=== PATIENT | male | born 1975 | race Caucasian/White ===

== ENCOUNTER 2024-01-14 08:45 | Outpatient (REF) | payer SELFPAY ==
--- NOTE | ~2024-01-14 | XR_ITS ---
EXAMINATION: XR CHEST CLINICAL INFORMATION: Productive cough. COMPARISON: None available. TECHNIQUE: 2 views of the chest were obtained. FINDINGS: Left chest wall AICD with its lead in the right heart. No lead fracture. No airspace consolidation. No pleural effusion or pneumothorax. Unremarkable cardiomediastinal silhouette. XR/XR chest 2V IMPRESSION: 1. No acute cardiopulmonary findings. 2. Left chest wall AICD with its lead in the right heart. Electronically signed by: Joe Machuca MD 01/14/2024 10:44 AM EDT
[2024-01-14 11:31] LABS: MANUAL DIFF FLAG NO
[2024-01-14 11:42] LABS: Basophils Absolute Auto 0.1 X10*3/uL (0.0-0.2); Basophils Percent Auto 1.4 % (0-2); Eosinophils Absolute Auto 0.3 X10*3/uL (0.0-0.4); Eosinophils Percent Auto 5.1 % (0-4); Hematocrit 43.9 % (42.0-52.0); Hemoglobin 14.6 g/dl (14.0-18.0); Imm Gran Abs Auto 0.01 X10*3/uL (0.00-0.03); Imm Gran Pct Auto 0.2 % (0.0-0.4); Lymphocytes Absolute Auto 2.5 X10*3/uL (1.2-4.9); Lymphocytes Percent Auto 37.2 % (20-40); Mean Corpuscular HGB Conc 33.3 g/dl (31.0-36.0); Mean Corpuscular Hemoglobin 31.6 pg (27.0-33.0); Mean Platelet Volume 10.2 fL (9.4-12.4); Monocytes Absolute Auto 0.7 X10*3/uL (0.1-1.2); Monocytes Percent Auto 10.1 % (2-11); Neutrophils Absolute Auto 3.1 x10*3/uL (2.0-8.3); Platelet Count 265 X10*3/uL (160-400); Red Blood Count 4.62 X10*6/uL (4.60-5.80); Red Cell Distribution Width 13.1 % (11.0-16.0); White Blood Count 6.6 X10*3/uL (4.8-10.8)
[2024-01-14 12:05] LABS: Alanine Aminotransferase 60 U/L (0-40); Albumin Level 4.4 g/dL (3.5-5.0); Alkaline Phosphatase 53 U/L (39-117); Anion Gap 13 (12-20); Aspartate Amino Transferase 49 U/L (5-37); Bilirubin Total 0.9 mg/dL (0.0-1.0); Blood Urea Nitrogen 12 mg/dL (9-16); Calcium 9.8 mg/dL (8.4-10.2); Carbon Dioxide 27 mmol/L (22-29); Chloride 104 mmol/L (96-108); Estimated Glomerular Filt Rate > 60; Glucose Random 103 mg/dL (60-115); Potassium 4.7 mmol/L (3.3-5.1); Sodium 139 mmol/L (135-145); Total Protein 7.7 g/dL (6.5-8.0)
[2024-01-14 12:10] LABS: Digoxin 0.6 ng/mL (0.8-2.0); TSH reflex Free T4 0.81 uIU/mL (0.32-4.0)
[2024-01-14 12:24] LABS: Vitamin B12 343 pg/mL (200-900)
== END 2024-01-14 08:46 | disposition home or self-care (01) ==
LOC: HO.HHCL 08:45
PROVIDERS: Visit Provider Emergency Medicine
DX: I50.9 Heart failure, unspecified (principal); I42.9 Cardiomyopathy, unspecified; R68.89 Other general symptoms and signs; Z95.810 Presence of automatic (implantable) cardiac defibrillator
CPT/HCPCS: 36415; 71046; 80053; 80162; 82607; 84443; 85025

== ENCOUNTER 2024-01-15 08:43 | Outpatient (REF) | payer MEDICAID, SELFPAY ==
[2024-01-15 11:43] LABS: Cholesterol 192 mg/dL (<200); HDL Cholesterol 47 mg/dL (>40); LDL Cholesterol Calculated 114 mg/dL (<100); Triglycerides 155 mg/dL (<150)
[2024-01-15 12:06] LABS: HBS Num1 61.89 mIU/mL (0-7.99); HBc Num1 0.14 S/CO (0.00-0.79); HBsAGNum1 0.36 S/CO (0.00-0.99); Hepatitis B Core Antibody Nonreactive (Nonreactive); Hepatitis B Surface Antigen Negative (Negative); ~HepC Num1 0.22 S/CO (0.00-0.79); ~Hepatitis B Surface Antibody REACTIVE (Nonreactive); ~Hepatitis C Antibody Nonreactive (Nonreactive)
[2024-01-15 12:07] LABS: Hepatitis A Antibody IgG Nonreactive (Nonreactive); ~Hepatitis A Antibody IgG 0.47 S/CO (0.00-0.99)
== END 2024-01-15 08:44 | disposition home or self-care (01) ==
LOC: HO.HHCL 08:43
PROVIDERS: Visit Provider Emergency Medicine
DX: I50.9 Heart failure, unspecified (principal)
CPT/HCPCS: 36415; 80061; 86704; 86706; 86708; 86803; 87340

== ENCOUNTER 2024-03-16 08:54 | Outpatient (AMB) | payer MEDICAID, SELFPAY ==
--- NOTE | 2024-03-16 09:03 | A.OFFVIS_ITS ---
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 Patient reports this has been on going for a couple years. Patient mentions that his fingers stay constantly locked. 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 Reports difficulty with lifting, gripping, grasping, and squeezing for both hands. Patient reports that his left hand is worse than the right. States they a re experiencing locking and cramping of the right small finger and left hand is all the digits. No hx of hand surgeries or treatment. 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 The patient states that these contractures have been ongoing for approximately 10 years. Patient states that he 1st noticed a contracture in his right small finger, but this has progressed to involve all fingers of bilateral hands. The patient states that he has tremendous difficulty with gripping or grasping things due to these contractures. Patient denies any numbness or tingling in bilateral hands. No other acute complaints or concerns at this time. [facility] Social History (Updated 03/16/24 @ 09:13 by Kita Whiteside) Alcohol intake: current Alcohol intake frequency: holidays/special occasions only Patient Tobacco Use Status: Never used Tobacco Current occupational status: unemployed Current occupation: left hand dominant Review of Systems Const All systems reviewed & are unremarkable except as noted in HPI and below Physical Exam Extrem Other: Patient is alert, oriented, and in no acute distress. Neuro: Normal sensation of the tips of all digits of the bilateral hand at this time Vascular: Cap refill brisk Pain: Patient reports no tenderness to palpation about the bilateral hands or wrists ROM: Contractures with Dupuytren's cords noted of all digits of the left hand and all but the index finger of the right hand Contracture of 90 degrees of both the MCP and PIP joints of the right small finger noted Contractures of the proximally 30 degrees of the MCP joints of the right middle and ring fingers noted, as well as approximately 45 degrees of the PIP joints of the fingers There is also noted to be an approximately 45 degree contracture of the IP joint of the right thumb There is noted to be an approximately 75-80 degree contracture of the MCP joints of the left small and ring fingers, with approximately 30 degree contractures of the PIP joints of these fingers There is noted to be approximately 30 degree contracture of the MCP joints index and middle fingers of the left hand There is noted to be a 15-20 degree contracture of the IP joint of the left thumb Skin: No lacerations or abrasions. General: No ecchymosis, erythema, or evidence of infection. Psych: Appears grossly normal Affect normal Attitude cooperative Assessment & Plan Assessment & Plan (1) Dupuytren's contracture of both hands: Code(s): M72.0 - Palmar fascial fibromatosis [Dupuytren] Category: Medical Plan 1. Dupuytren's contractures of bilateral hands Involving all digits of the left hand and all of the index finger of the right hand Ongoing for approximately 10 years At this time, patient was referred to Dr. Bean for surgical consult for Dupuytren's contracture with bilateral hands, as Dr. 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 Bean Patient will follow-up for next available appointment for surgical consult for bilateral Dupuytren's contractures with Dr. Bean Coding Level of Care Code New Pt Level 3 (19595) Diagnoses Dupuytren's contracture of both hands M72.0
== END 2024-03-16 09:26 | disposition home or self-care (01) ==
PROVIDERS: PCP Emergency Medicine
DX: M72.0 Palmar fascial fibromatosis [Dupuytren] (principal)
CPT/HCPCS: 99203

== ENCOUNTER → 2024-03-16 08:54 | Outpatient (BNVA) | payer MEDICAID, SELFPAY | PROVIDERS: PCP Emergency Medicine | DX: M72.0 Palmar fascial fibromatosis [Dupuytren] (principal) | CPT/HCPCS: 99212 ==

== ENCOUNTER 2024-03-25 08:09 | Outpatient (REF) | payer MEDICAID, SELFPAY ==
[2024-03-25 12:10] LABS: Alanine Aminotransferase 26 U/L (0-40); Albumin Level 4.2 g/dL (3.5-5.0); Alkaline Phosphatase 38 U/L (39-117); Anion Gap 10 (12-20); Aspartate Amino Transferase 25 U/L (5-37); Bilirubin Direct 0.2 mg/dL (0.0-0.5); Bilirubin Total 0.6 mg/dL (0.0-1.0); Blood Urea Nitrogen 18 mg/dL (9-16); Carbon Dioxide 29 mmol/L (22-29); Chloride 104 mmol/L (96-108); Estimated Glomerular Filt Rate > 60; Glucose Random 101 mg/dL (60-115); Potassium 4.3 mmol/L (3.3-5.1); Sodium 139 mmol/L (135-145); Total Protein 7.2 g/dL (6.5-8.0)
== END 2024-03-25 08:10 | disposition home or self-care (01) ==
LOC: HO.HHCL 08:09
PROVIDERS: Visit Provider Nurse Practitioner Family
DX: I50.9 Heart failure, unspecified (principal)
CPT/HCPCS: 36415; 80048; 80076

== ENCOUNTER 2024-04-13 09:57 | Outpatient (AMB) | payer MEDICAID, SELFPAY ==
--- NOTE | 2024-04-13 10:03 | A.OFFVIS_ITS ---
Vital Signs 04/13/24 10:15 Height 6 ft Weight 188 lb BMI 25.5 Intake Visit Reasons: OV-B/L Dupuytren-30 min appt. Intake Note: Patient 48-year-old left hand dominant male who presents for a follow up visit for his contractures of bilateral hands. The patient states that these contractures have been ongoing for approximately 10 years. Patient states that he 1st noticed a contracture in his right small finger, but this has progressed to involve all fingers of bilateral hands. States his left is worse. Denies pain just discomfort. Seen with Reinaldo Caban who wants patient to be re-evaluated with Dr Bean to discuss surgical intervention. Allergies No Known Allergies Allergy (Verified 04/13/24 10:15) HPI HPI OV-B/L Dupuytren-30 min appt.: Details: Chandler is a 49 year old left hand dominant man who presents for bilateral Dupuytrens contractures. He complains of contractures to all his fingers bilaterally. He says this began when he was 39 and has been worsening since. He finds himself limited in the use of his hands, with poor function and weakness with activities. He denies any prior treatment options He has a Hx of CHF, with an implanted Defibrillator, and is on multiple medications for this, including Digoxin, Jardiance, Exntresto, and is scheduled to meet with [facility] to establish care on 05/26/24. 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 [facility] Social History (Updated 03/16/24 @ 09:13 by Kita Whiteside) Alcohol intake: current Alcohol intake frequency: holidays/special occasions only Patient Tobacco Use Status: Never used Tobacco Current occupational status: unemployed Current occupation: left hand dominant Review of Systems Const All systems reviewed & are unremarkable except as noted in HPI and below Physical Exam Vital Signs: BMI result Body Mass Index 25.5 Const General: cooperative, healthy appearing and no acute distress Orientation/consciousness: patient oriented x3 HEENT Head: Yes normocephalic and Yes atraumatic Eyes EOM: EOMs intact bilaterally Resp Effort & Inspection: normal respiratory effort and able to speak in complete sentences Cardio Jugular venous distension: no JVD Skin General skin exam: turgor normal Rashes: no rashes Neuro General: patient oriented x3 Extrem Other: Evaluation of Bilateral Upper Extremity: The patient is alert, oriented, and in no acute distress Neuro: Median, Ulnar, Radial nerves motor and sensory intact and sensation is normal to the tips of all digits Vascular: Cap refill brisk ROM: He has Dupuytrens contractures of all digits bilaterally He can make a fist with all digits of his bilateral hands, without active flexion of the small finger DIP joints Left hand: Thumb: central cord extending from palm to radial aspect of the thumb, good active flexion & extension of the IP joint. Transverse cord up the 1st webspace, can ABduct his thumb 2cm from index finger Index: large central cord extending from the mid-palm up the ulnar aspect of finger just past the PIP joint Middle: central cords from the index & ring fingers are extending to contract the middle finger MCP joint Ring: large central cord extending from the mid-palm Small: DIP hyperextension to 45 degrees, central cord extending from the mid- palm Digit MCP PIP DIP 1st Web Thumb 80 20 2cm ABduction Index 85 30 0 Middle 80 40 0 Ring 90 30 0 Small 95 45 45 hyperextension Right hand: Thumb: central cord extending from palm to radial aspect of the thumb, cord passing across 1st webspace, ABduction of 4-5cm from index finger Index: Middle: Ring: cord volar to PIP joint, MCP joint likely due to small finger Small: DIP hyperextension to 10 degrees Digit MCP PIP DIP 1st Web Thumb 80 5 4-5cm ABduction Index 0 5 0 Middle 0 30 0 Ring 30 0 0 Small 95 95 10 hyperextension Skin: No lacerations or abrasions. General: No Ecchymosis. No Erythema or evidence of infection. Psych Appearance: grossly normal Affect: normal affect Attitude: cooperative Assessment & Plan Assessment & Plan (1) Dupuytren's contracture of both hands: Comment: All digits Code(s): M72.0 - Palmar fascial fibromatosis [Dupuytren] Category: Medical (2) Dupuytren's disease of both palm and finger with contracture: Comment: All digits Code(s): M72.0 - Palmar fascial fibromatosis [Dupuytren] Category: Medical Plan Assessment & Plan: 1. Left thumb Dupuytrens contracture MCP 80/IP 20 Transverse cord in the 1st webspace, he can ABduct only 2cm form his index finger 2. Left index finger Dupuytrens contracture MCP 85/PIP 30 Large central cord extending from the mid-palm up the ulnar aspect of finger just past the PIP joint 3. Left middle finger Dupuytrens contracture MCP 80/PIP 40 4. Left ring finger Dupuytrens contracture MCP 90/PIP 30 5. Left small finger Dupuytrens contracture MCP 95/PIP 45, DIP hyperextension to 45 degrees, central cord extending from the mid-palm I educated him about this condition, and had an extensive conversation with him concerning treatment options I am recommending a combination treatment plan involving surgery & Xyoflex injections The patient is in agreement I recommend we begin with Xyoflex injections for his left ring & small fingers, while we await his appointment with Cardiology before scheduling surgery Appointments for his Xyaflex injections should be [id number] Thursday & Thursday the same week, & 30 minutes each for the injection and extension maneuver If this procedure goes well, we may consider proceeding with operative treatment for the thumb, index, and middle fingers ~2 months following the injections. He denies Diabetes, blood thinners, asthma, lung, kidney issues He has a Hx of heart failure and is taking Jardiance, Entresto, and Digoxin for this. He also has an implanted Defibrillator. He is scheduled to establish care with Dr. Diaz in Cardiology on 05/26/24 Discuss Cardiac clearance with anesthesia, including whether his Defibrillator needs to be turned off for surgery. 6. Right thumb Dupuytrens contracture MCP 80/IP 5 Transverse cord in the 1st webspace, he can ABduct only 4-5cm form his index finger 7. Right index finger Dupuytrens contracture MCP 0/PIP 5 8. Right middle finger Dupuytrens contracture MCP 0/PIP 30 9. Right ring finger Dupuytrens contracture MCP 30/PIP 0 10. Right small finger Dupuytrens contracture MCP 95/PIP 45, DIP hyperextension to 10 degrees Please note that greater than 60 minutes was spent with this patient going over the history, evaluating the patient and radiographs, formulating possible treatment options, discussing them with the patient, and documenting the visit. Scribed for Felipa Bean MD by Keanu Phillips, medical support specialist, on 04/13/24 at 10:10 AM, EST. Coding Level of Care Code Est Pt Level 4 (45136) Diagnoses Dupuytren's contracture of both hands M72.0 Dupuytren's disease of both palm and finger with contracture M72.0
[2024-04-13 10:15] VITALS: BMI 25.5
== END 2024-04-13 10:58 | disposition home or self-care (01) ==
PROVIDERS: PCP Emergency Medicine; Visit Provider Orthopaedic Surgery
DX: M72.0 Palmar fascial fibromatosis [Dupuytren] (principal)
CPT/HCPCS: 99214

== ENCOUNTER → 2024-04-13 09:57 | Outpatient (BNVA) | payer MEDICAID, SELFPAY | PROVIDERS: PCP Emergency Medicine; Visit Provider Orthopaedic Surgery | DX: M72.0 Palmar fascial fibromatosis [Dupuytren] (principal) | CPT/HCPCS: 99212 ==

== ENCOUNTER 2024-05-07 16:05 | Emergency (ER) | payer MEDICAID, SELFPAY ==
--- NOTE | ~2024-05-07 | XR_ITS ---
CLINICAL HISTORY: CHF, sob, defibrillator 1 view chest x-ray Comparison: CR/SR - XR CHEST 2V - 01/14/24 09:21 EDT Findings: Left-sided pacer No consolidation or effusion. Normal size heart. No acute fracture. IMPRESSION: 1. No acute findings. This document has been electronically signed by: Nj Siddiqui MD on 05/07/2024 17:43:53
--- NOTE | 2024-05-07 16:07 | ECG_ITS ---
Test Reason : TACHYCARDIA Blood Pressure : */* mmHG Vent. Rate : 90 BPM Atrial Rate : 90 BPM P-R Int : 166 ms QRS Dur : 98 ms QT Int : 342 ms P-R-T Axes : 85 73 90 degrees QTcB Int : 418 ms Normal sinus rhythm Nonspecific T wave abnormality Abnormal ECG No previous ECGs available Referred By: Sherron Cerna Electronically Signed By: CAILIN DUMONT
[2024-05-07 16:22] VITALS: BP 141/97; PULSE 87; RESP 19; TEMP 36.6; O2SAT 98; BMI 23.7
--- NOTE | 2024-05-07 16:50 | ED.ARRPALP ---
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 Sounds like it is idiopathic etiology possibly postviral. The patient has been adherent with medications today he develop rapid palpitations after going up and down stairs he has had this before. He did not feel defibrillation or shock from the device but felt something strange that he describes as subtle electricals sensation in the left upper chest region. Currently he is slightly anxious but does not have any of these sensations nor active palpitations Related Data Home Medications ?Medication ?Instructions ?Recorded ?Confirmed aspirin 81 mg chewable tablet 1 tab PO DAILY 03/16/24 atorvastatin 40 mg tablet 40 mg PO DAILY 03/16/24 blood pressure test kit-large #1 ea 03/16/24 digoxin 125 mcg (0.125 mg) tablet 125 mcg PO DAILY 03/16/24 empagliflozin 10 mg tablet 10 mg PO DAILY 03/16/24 (Jardiance) fluoride (sodium) 1.1 % dental appl PO 03/16/24 cream furosemide 20 mg tablet 20 mg PO BID 03/16/24 isosorbide mononitrate 30 mg 30 mg PO DAILY 03/16/24 tablet,extended release 24 hr metoprolol succinate 50 mg 50 mg PO DAILY 03/16/24 tablet,extended release 24 hr sacubitril 24 mg-valsartan 26 mg 1 tab PO BID 03/16/24 tablet (Entresto) spironolactone 25 mg tablet 25 mg PO DAILY 03/16/24 Allergies Allergy/AdvReac Type Severity Reaction Status Date / Time No Known Allergies Allergy Verified 05/07/24 16:26 [facility] Social History Social History (Updated 03/16/24 @ 09:13 by Kita Whiteside) Alcohol intake: current Alcohol intake frequency: holidays/special occasions only Patient Tobacco Use Status: Never used Tobacco Current occupational status: unemployed Current occupation: left hand dominant Physical Exam Vital Signs: Vital Signs: Last Vital Signs Temp 98.4 F 05/07/24 20:44 Pulse 70 05/07/24 20:44 Resp 18 05/07/24 20:44 BP 113/80 05/07/24 20:44 Pulse Ox 98 05/07/24 20:44 O2 Del Method Room Air 05/07/24 20:44 BMI result Body Mass Index 23.7 Const: Other: EXAM: Gen: Alert, awake, well appearing, well hydrated. Head: Atraumatic Eyes: Anicteric, Normal conjunctiva. ENT: Moist mucosa, no pallor. Neck: Supple. Chest wall: Defibrillator palpable no erythema redness tenderness no obvious deformity or abnormality over this area Respiratory: Breathing comfortably, No distress.Clear to auscultation bilaterally, symmetric chest expansion, No wheeze, rales, ronchi. Cardiovascular: Regular rate and rhythm. No murmurs or rub. Well perfused periphery, warm extremities. No edema. Abdominal: Soft, no objective distension. No palpable masses or obvious organomegaly. No focal tenderness, no guarding, no rebound tenderness or other peritoneal findings. : No flank tenderness. Neuro: Alert. Gross movement of all extremities intact. Vital signs: See flowsheet Medical Decision Making Medical Decision Making [facility] Narrative: 49-year-old male with the defibrillator history of half for F which sounds like he is having resolving ejection fraction. reassuring ECG, echo here. Pacemaker was interrogated but we have not received a fax from [employer] with the results of this. He did not receive a shot today and he has been stable several hours on our manager monitoring here. Patient is eager to go home and he has a follow up appointment with 1 of our cardiologists soon. Think it is reasonable to send him home. There is no abnormality of the device or disruption of the wires per my review of the chest x-ray electrolytes normal will discharge him home. Differential Diagnosis Differential Diagnoses: The differential diagnosis associated with the presentation includes SVT, VT, electrolyte derangement, anxiety, dehydration, deconditioning, decompensated heart failure Admission/Observation Consideration of admission/observation: Escalation of care including admission/observation considered Lab Data [facility] Lab Attestation statement: I reviewed the patient's lab results. 05/07/24 17:18 05/07/24 17:18 Labs: Lab Results 05/07/24 Range/Units 17:18 WBC 7.9 (4.8-10.8) X10*3/uL RBC 4.45 L (4.60-5.80) X10*6/uL Hgb 13.9 L (14.0-18.0) g/dl Hct 40.2 L (42.0-52.0) % MCV 90.3 (80.0-98.0) fL MCH 31.2 (27.0-33.0) pg MCHC 34.6 (31.0-36.0) g/dl RDW 12.0 (11.0-16.0) % Plt Count 256 (160-400) X10*3/uL MPV 9.5 (9.4-12.4) fL Immature Gran % (Auto) 0.1 (0.0-0.4) % Neut % (Auto) 58.0 (45-73) % Lymph % (Auto) 30.4 (20-40) % Hemphill % (Auto) 6.9 (2-11) % Eos % (Auto) 3.7 (0-4) % Baso % (Auto) 0.9 (0-2) % Lymph # (Auto) 2.4 (1.2-4.9) X10*3/uL Hemphill # (Auto) 0.5 (0.1-1.2) X10*3/uL Eos # (Auto) 0.3 (0.0-0.4) X10*3/uL Baso # (Auto) 0.1 (0.0-0.2) X10*3/uL Abs Immat Gran (auto) 0.01 (0.00-0.03) X10*3/uL Absolute Neuts (auto) 4.6 (2.0-8.3) x10*3/uL Absolute Nucleated RBC 0.000 (0.0-0.012) X10*3/uL Nucleated RBC % (auto) 0.0 (0.0-0.2) /100WBC Sodium 137 (135-145) mmol/L Potassium 4.6 (3.3-5.1) mmol/L Chloride 106 (96-108) mmol/L Carbon Dioxide 22 (22-29) mmol/L Anion Gap 14 (12-20) BUN 19 H (9-16) mg/dL Creatinine 0.93 (0.5-1.4) mg/dL Estim Creat Clear Calc 104.3 Estimated GFR > 60 Random Glucose 89 (60-115) mg/dL Calcium 9.2 (8.4-10.2) mg/dL Phosphorus 3.0 (2.7-4.5) mg/dL Magnesium 2.3 (1.6-2.6) mg/dL Troponin I High Sens 5.1 (<3.5-35.0) ng/L B-Natriuretic Peptide 40 (<100) pg/mL TSH 0.65 (0.32-4.0) uIU/mL Independent Interpretation I performed an independent interpretation of an: EKG Interpretation: ECG: Sinus rhythm rate 90 QTC 418, OH 166. QRS 98. Poor R-wave progression Procedures Procedure Narrative Procedure Narrative: EMERGENCY ULTRASOUND INTERPRETATION-Limited Echocardiography [This study was ordered, performed, and interpreted by myself. The study reveals: Impression: NORMAL LV FUNCTION, NO RV DYSFUNCTION, NO PERICARDIAL EFFUSION] [Emergent Cardiac for Indication: Views Used: PLAX, PSSA, A4, SX, IVC Pericardial Effusion/Tamponade Findings: NONE RV Dilation (> LV diam in 4ch apical): NONE, defibrillator wires present in the RV Global LV Fxn: NORMAL IVC Dilation and Resp Variation: NORMAL Performed by: MD Hyacinth Images were stored on EMR through [employer] image archive software. CPT:93583] Discharge Plan Discharge Clinical Impression: Heart palpitations Patient Disposition: Home, Self-Care Instructions: Heart Palpitations (ED) Additional Instructions: DISCHARGE DIAGNOSES: Palpitations unclear cause HISTORY OF PRESENTATION: rapid palpitations and electrical sensation in the left upper chest EMERGENCY DEPARTMENT COURSE,TESTS, TREATMENTS: While in the ED today you had a reassuring echocardiogram, he had a [employer] pacemaker interrogation but this had not yet resulted. Your hogshead hooper should be able to get the results. when I received the results I will call you if there is any findings that are important to get T0 right away you had lab work and an EKG which were normal and reassuring DISCHARGE MEDICATIONS: [We have made no changes to your regular medication regimen] FOLLOW-UP: Call your primary or general physician soon as possible to discuss your symptoms, your ED visit and to discuss follow up plans call your hogshead hooper to try to expedite follow-up INSTRUCTIONS & RETURN PRECAUTIONS: If any symptoms change first call your primary physician, if it is after-hours your primary doctors office should have a provider structural ironworker you can speak with. If the symptoms are severe or very concerning to you then call 911 or return to the ED. Joce Claros MD Emergency Physician [facility] Prescriptions: No Action spironolactone 25 mg tablet 25 mg PO DAILY metoprolol succinate 50 mg tablet extended release 24 hr 50 mg PO DAILY (DME) blood pressure test kit-large Kit See Rx Instructions .ROUTE BID Qty: 1 Rx Instructions: As directed furosemide 20 mg tablet 20 mg PO BID digoxin 125 mcg (0.125 mg) tablet 125 mcg PO DAILY aspirin 81 mg tablet,chewable 1 tab PO DAILY isosorbide mononitrate 30 mg tablet extended release 24 hr 30 mg PO DAILY atorvastatin 40 mg tablet 40 mg PO DAILY fluoride (sodium) 1.1 % cream PO sacubitril-valsartan [Entresto] 24-26 mg tablet 1 tab PO BID Jardiance 10 mg tablet 10 mg PO DAILY Interventions: ED Discharge Assessment Last Done: 05/07/24 20:44 Discharge Date/Time: 05/07/24 20:49 Print Language: Romanian
[2024-05-07 17:11] VITALS: BP 116/80; PULSE 80; PULSE 85; RESP 14; O2SAT 98
[2024-05-07 17:26] LABS: MANUAL DIFF FLAG NO
[2024-05-07 17:30] LABS: Basophils Absolute Auto 0.1 X10*3/uL (0.0-0.2); Basophils Percent Auto 0.9 % (0-2); Eosinophils Absolute Auto 0.3 X10*3/uL (0.0-0.4); Eosinophils Percent Auto 3.7 % (0-4); Hematocrit 40.2 % (42.0-52.0); Hemoglobin 13.9 g/dl (14.0-18.0); Imm Gran Abs Auto 0.01 X10*3/uL (0.00-0.03); Imm Gran Pct Auto 0.1 % (0.0-0.4); Lymphocytes Absolute Auto 2.4 X10*3/uL (1.2-4.9); Lymphocytes Percent Auto 30.4 % (20-40); Mean Corpuscular HGB Conc 34.6 g/dl (31.0-36.0); Mean Corpuscular Hemoglobin 31.2 pg (27.0-33.0); Mean Corpuscular Volume 90.3 fL (80.0-98.0); Mean Platelet Volume 9.5 fL (9.4-12.4); Monocytes Absolute Auto 0.5 X10*3/uL (0.1-1.2); Monocytes Percent Auto 6.9 % (2-11); Neutrophils Absolute Auto 4.6 x10*3/uL (2.0-8.3); Platelet Count 256 X10*3/uL (160-400); Red Blood Count 4.45 X10*6/uL (4.60-5.80); White Blood Count 7.9 X10*3/uL (4.8-10.8)
--- NOTE | 2024-05-07 17:57 | PC.NURSE ---
[employer] device interrogated and sent to visual c developer
[2024-05-07 18:01] LABS: Troponin-I High Sensitivity 5.1 ng/L (<3.5-35.0)
[2024-05-07 18:02] LABS: B Type Natriuretic Peptide 40 pg/mL (<100)
[2024-05-07 18:06] LABS: Anion Gap 14 (12-20); Blood Urea Nitrogen 19 mg/dL (9-16); Calcium 9.2 mg/dL (8.4-10.2); Carbon Dioxide 22 mmol/L (22-29); Chloride 106 mmol/L (96-108); Creatinine Clr Calc Pharmacy 104.3; Estimated Glomerular Filt Rate > 60; Glucose Random 89 mg/dL (60-115); Magnesium 2.3 mg/dL (1.6-2.6); Potassium 4.6 mmol/L (3.3-5.1); Sodium 137 mmol/L (135-145)
[2024-05-07 18:23] LABS: Thyroid Stimulating Hormone 0.65 uIU/mL (0.32-4.0)
[2024-05-07 20:30] VITALS: BP 113/80; PULSE 70; RESP 18; TEMP 36.9; O2SAT 98
[2024-05-07 20:44] VITALS: BP 113/80; PULSE 70; RESP 18; TEMP 36.9; O2SAT 98
== END 2024-05-07 20:49 | disposition home or self-care (01) ==
PROVIDERS: Emergency Provider Emergency Medicine
DX: R00.2 Palpitations (principal); Z95.810 Presence of automatic (implantable) cardiac defibrillator; Z79.82 Long term (current) use of aspirin; Z79.02 Long term (current) use of antithrombotics/antiplatelets; Z79.899 Other long term (current) drug therapy
CPT/HCPCS: 36415; 71045; 80048; 83735; 83880; 84100; 84443; 84484; 85025; 93005; 99284; 99285

== ENCOUNTER → 2024-05-07 16:07 | Outpatient (BNV) | payer MEDICAID, SELFPAY | PROVIDERS: Emergency Provider Emergency Medicine; Visit Provider Internal Medicine | DX: R94.31 Abnormal electrocardiogram [ECG] [EKG] (principal); R00.0 Tachycardia, unspecified | CPT/HCPCS: 93010 ==

== ENCOUNTER → 2024-05-07 16:50 | Outpatient (BNV) | payer MEDICAID, SELFPAY | PROVIDERS: Emergency Provider Emergency Medicine; Visit Provider Radiology Diagnostic Radiology | DX: R00.0 Tachycardia, unspecified (principal); R06.02 Shortness of breath | CPT/HCPCS: 71045 ==

== ENCOUNTER 2024-05-26 12:45 | Outpatient (AMB) | payer MEDICAID, SELFPAY ==
--- NOTE | 2024-05-26 12:53 | A.OFFVIS_ITS ---
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 Accompanied by: Self / Same As Patient Allergies No Known Allergies Allergy (Verified 05/07/24 16:26) Medication List - Last Reconciled 05/26/24 by Kenny Diaz MD aspirin 1 tab PO DAILY atorvastatin 40 mg PO DAILY blood pressure test kit-large As directed digoxin 125 mcg PO DAILY empagliflozin (Jardiance) 10 mg PO DAILY fluoride (sodium) 1.1% appl PO furosemide 20 mg PO BID isosorbide mononitrate ER 30 mg PO DAILY metoprolol succinate ER 50 mg PO DAILY sacubitril-valsartan 24-26 mg (Entresto) 1 tab PO BID spironolactone 25 mg PO DAILY HPI Comments Details: Thank you for referring Chandler in cardiology consultation today for management of heart failure with reduced ejection fraction coronary artery disease. He is a pleasant 49-year-old male with prior history of cardiomyopathy. 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 He subsequently was diagnose with heart failure with reduced ejection fraction with severe LV systolic dysfunction, he said he was LV ejection fraction was 15%. He subsequently underwent a cardiac catheterization which showed diffuse disease in the RCA as well as OM branch of circumflex and diagonal branch of LAD, and was suspected that his cardiomyopathy was out of proportion to his coronary artery disease. Did not undergo any revascularization. He was started on medical therapy. Said after being started on Entresto he started feeling better and had gradual improvement in symptoms. He had ICD placed Medtronic for primary prevention of sudden cardiac that. Patient was then started on medical therapy and gradually improved. He said last measured echocardiographically ejection fraction was about 40%. He has not had any anginal symptoms but continues to have NYHA class 2 exertional shortness of breath. Denies, PND on current medications. He says after the defibrillator pacemaker he had 1 episode very had rapid heart rate and and then subsequently had ICD discharge. It was subsequently and inappropriate discharge due to SVT as per him. He is currently on metoprolol therapy. More recently had come to the emergency room here because after going up and down the stairs he started feeling fast heart rate and felt some strain sensation near the defibrillator and thought that he might have another defibrillator discharge but this does not happen. He denies any other syncopal episodes. FORMERLY [facility], [facility] Medical History (Updated 05/26/24 @ 13:23 by Kenny Diaz MD) SVT (supraventricular tachycardia) ICD (implantable cardioverter-defibrillator) in place CAD (coronary artery disease) Heart failure with reduced ejection fraction Social History (Updated 03/16/24 @ 09:13 by Kita Whiteside) Alcohol intake: current Alcohol intake frequency: holidays/special occasions only Patient Tobacco Use Status: Never used Tobacco Current occupational status: unemployed Current occupation: left hand dominant Review of Systems Const Denies chills, Denies fatigue, Denies fever(s), Denies frequent falls, Denies weakness, Denies weight gain and Denies weight loss ENT Denies dizziness Card Denies chest pain, Denies leg edema, Denies lightheadedness, Denies palpitations, Denies dyspnea, Denies dyspnea on exertion and Denies orthopnea Resp Denies cough, Denies dyspnea and Denies dyspnea on exertion GI Denies bloating and Denies change in bowel habits Musc Denies muscle weakness, Denies numbness and Denies tingling Neuro Denies dizziness, Denies frequent falls, Denies numbness, Denies tingling and Denies weakness Endo Denies fatigue and Denies palpitations Physical Exam Vital Signs: Last Vital Signs Pulse 63 05/26/24 12:59 BP 130/80 05/26/24 12:59 BMI result Body Mass Index 26.2 Const General: cooperative, comfortable, no acute distress, well developed, alert and awake Nutritional Appearance: average body habitus and well nourished Orientation/consciousness: patient oriented x3 Limitations: no limitations HEENT Head: Yes normocephalic and Yes atraumatic Neck Neck: Yes trachea midline, Yes supple and Yes no JVD Resp Effort & Inspection: normal respiratory effort Auscultation: clear to auscultation bilaterally Cardio Jugular venous distension: no JVD Palpation: abnormal PMI displaced PMI Rate: regular rate Rhythm: regular rhythm Heart sounds: S1 normal heart sound present, S2 normal heart sound present, no click, no gallops, no murmurs and no rubs GI Auscultation: normal bowel sounds Skin General skin exam: no rashes or lesions noted Neuro General: patient oriented x3 and no focal motor deficits Extrem General: Yes no clubbing, cyanosis or edema Office Procedures Cardiac Device Check Cardiac Device Check Details: Single-chamber Medtronic ICD in place. Programmed in VVI at 40 beats per minute. No arrhythmias detected. Ventricular pacing thresholds excellent and reprogrammed to enhance battery life. Ventricular sensing was excellent. Pacing and shock lead impedance is stable. Battery life is at 10.2 years [id number] Cardiac Device Check, single lead implantable defibrillator Procedure code (CPT) selection complete EKG Details: EKG shows normal sinus rhythm at 63 beats per minute with right axis deviation nonspecific ST T wave changes 42822-[id number], Complete Assessment & Plan Assessment & Plan (1) Heart failure with reduced ejection fraction: Code(s): I50.20 - Unspecified systolic (congestive) heart failure Category: Medical Plan: Heart failure with reduced ejection fraction with improved LV ejection fraction as per him by testing in [place]. Do not have any copy of the echo results from the before. He is currently on good medical therapy. Although at this po int time I do not think he requires isosorbide therapy as he was no symptoms of angina. Also digoxin therapy is not indicated from heart failure perspective. Will maximize metoprolol to 100 mg daily and increase Entresto to 49-51 mg b.i.d.. Follow-up lab work in couple of weeks. Will follow-up echocardiogram in 3 months time. He is currently symptomatic with his heart failure syndrome with NYHA class 2 symptoms is worried about exercising will refer him to phase 2 cardiac rehabilitation for further improvement in his exercise capacity. Continue neurohormonal modulation with Jardiance and spironolactone therapy. (2) CAD (coronary artery disease): Code(s): I25.10 - Atherosclerotic heart disease of [place] coronary artery without angina pectoris Category: Medical Plan: CAD with diffuse RCA disease as well as branch vessel disease of the left system. No symptoms of angina currently. Continue low-dose aspirin therapy. Continue high-intensity statin therapy. Target goal LDL less than 55 mg/dL. Advised lipid panel in 2 weeks' time along with apolipoprotein B and lipoprotein a. Blood pressure is currently well optimized. (3) ICD (implantable cardioverter-defibrillator) in place: Comment: Medtronic single-chamber for primary prevention Code(s): Z95.810 - Presence of automatic (implantable) cardiac defibrillator Category: Medical Plan: ICD in place, working well. Reprogrammed for adequate function. Will follow remotely and will set up for remote monitoring for him. (4) SVT (supraventricular tachycardia): Code(s): I47.10 - Supraventricular tachycardia, unspecified Category: Medical Plan: SVT with no obvious clinical recurrence on the device telemetry. Will increase metoprolol to 100 mg daily. Advised to avoid stimulants. Stress mitigation strategies was discussed. Will follow up in the clinic in 3 months time, sooner p.r.n.. Thank you for allowing me to partake in his care Orders: Orders Cardiac Rehab Today I50.20 - Unspecified systolic (congestive) heart failure Basic Metabolic Panel Today I25.10 - Atherosclerotic heart disease of [place] coronary artery without angina pectoris B Type Natriuretic Peptide Today I25.10 - Atherosclerotic heart disease of [place] coronary artery without angina pectoris, I50.20 - Unspecified systolic (congestive) heart failure Lipoprotein A Today I25.10 - Atherosclerotic heart disease of [place] coronary artery without angina pectoris CA echo transthoracic complete 3 Months I50.20 - Unspecified systolic (congestive) heart failure Lipid Panel Today I25.10 - Atherosclerotic heart disease of [place] coronary artery without angina pectoris Apolipoprotein B Today I25.10 - Atherosclerotic heart disease of [place] coronary artery without angina pectoris CRP High Sensitivity Today E78.5 - Hyperlipidemia, unspecified, I25.10 - Atherosclerotic heart disease of [place] coronary artery without angina pectoris Medications: New sacubitril-valsartan 49-51 mg (Entresto) 1 tab PO BID 60 tabs 5RF metoprolol succinate ER (Toprol XL) 100 mg PO DAILY 30 tabs 5RF Changed 2 From furosemide 20 mg PO BID To furosemide 40 mg PO QAM Coding Level of Care Code New Pt Level 4 (92192) Complex EM visit Add On G2211 Diagnoses Heart failure with reduced ejection fraction I50.20 CAD (coronary artery disease) I25.10 ICD (implantable cardioverter-defibrillator) in place Z95.810 SVT (supraventricular tachycardia) I47.10 CPT Codes Cardiac Device Check - Cardiac Device 4: 16267-CK Cardiac Device Check, single lead implantable defibrillator ([id number]) EKG - CPT: 12379-Gayffalxcbjafdsss, Complete ([id number])
[2024-05-26 12:59] VITALS: BP 130/80; PULSE 63; BMI 26.2
== END 2024-05-26 13:24 | disposition home or self-care (01) ==
PROVIDERS: PCP Emergency Medicine; Visit Provider Internal Medicine Cardiovascular Disease
DX: I50.20 Unspecified systolic (congestive) heart failure (principal); I25.10 Atherosclerotic heart disease of native coronary artery without angina pectoris; Z95.810 Presence of automatic (implantable) cardiac defibrillator; I47.10 Supraventricular tachycardia, unspecified
CPT/HCPCS: 93010; 93282; 99204

== ENCOUNTER → 2024-05-26 12:45 | Outpatient (BNVA) | payer MEDICAID, SELFPAY | PROVIDERS: PCP Emergency Medicine; Visit Provider Internal Medicine Cardiovascular Disease | DX: Z45.02 Encounter for adjustment and management of automatic implantable cardiac defibrillator (principal); I50.20 Unspecified systolic (congestive) heart failure; I25.10 Atherosclerotic heart disease of native coronary artery without angina pectoris; I47.10 Supraventricular tachycardia, unspecified; R94.31 Abnormal electrocardiogram [ECG] [EKG] | CPT/HCPCS: 93005; 93282; 99202 ==

== ENCOUNTER → 2024-06-15 11:49 | Outpatient (BNV) | payer MEDICAID, SELFPAY | PROVIDERS: PCP Emergency Medicine; Visit Provider Internal Medicine | DX: I47.10 Supraventricular tachycardia, unspecified (principal) | CPT/HCPCS: 93010 ==

== ENCOUNTER → 2024-07-05 23:59 | Outpatient (BNV) | payer MEDICAID, SELFPAY ==
--- NOTE | 2024-07-06 13:03 | MHC.OFFVIS ---
Intake Visit Reasons: Remote HF monitoring- Medtronic Allergies No Known Allergies Allergy (Verified 05/07/24 16:26) REPLACED BY [facility] Medical History (Updated 05/26/24 @ 13:23 by Kenny Diaz MD) SVT (supraventricular tachycardia) ICD (implantable cardioverter-defibrillator) in place CAD (coronary artery disease) Heart failure with reduced ejection fraction Social History (Updated 03/16/24 @ 09:13 by Kita Whiteside) Alcohol intake: current Alcohol intake frequency: holidays/special occasions only Patient Tobacco Use Status: Never used Tobacco Current occupational status: unemployed Current occupation: left hand dominant Office Procedures Cardiac Device Check Cardiac Device Check Details: Remote heart failure report generated 07/05/2024. Heart failure parameters are stable [id number] Cardiac Device Interrogation, cardio physiologic monitor Procedure code (CPT) selection complete Assessment & Plan Assessment & Plan (1) ICD (implantable cardioverter-defibrillator) in place: Comment: Medtronic single-chamber for primary prevention Code(s): Z95.810 - Presence of automatic (implantable) cardiac defibrillator Category: Medical Plan: See above Coding Level of Care Code Procedure Only Diagnoses ICD (implantable cardioverter-defibrillator) in place Z95.810 CPT Codes Cardiac Device Check - Cardiac Device 15: 13572-Gkiift Cardiac Device Interrogation, cardio physiologic monitor ([id number])
== END ==
PROVIDERS: PCP Emergency Medicine; Visit Provider Internal Medicine Cardiovascular Disease
DX: Z45.02 Encounter for adjustment and management of automatic implantable cardiac defibrillator (principal)
CPT/HCPCS: 93297

== ENCOUNTER → 2024-08-04 23:59 | Outpatient (BNV) | payer MEDICAID, SELFPAY ==
--- NOTE | 2024-08-09 13:06 | MHC.OFFVIS ---
Intake Visit Reasons: Remote Device check- Medtronic Allergies No Known Allergies Allergy (Verified 05/07/24 16:26) [facility] Medical History (Updated 05/26/24 @ 13:23 by Kenny Diaz MD) SVT (supraventricular tachycardia) ICD (implantable cardioverter-defibrillator) in place CAD (coronary artery disease) Heart failure with reduced ejection fraction Social History (Updated 03/16/24 @ 09:13 by Kita Whiteside) Alcohol intake: current Alcohol intake frequency: holidays/special occasions only Patient Tobacco Use Status: Never used Tobacco Current occupational status: unemployed Current occupation: left hand dominant Office Procedures Cardiac Device Check Cardiac Device Check Details: Remote ICD report generated 08/04/2024. ICD function is adequate 04291-Vasctc Cardiac Interrogation, implant defibrillator w/interim Procedure code (CPT) selection complete Assessment & Plan Assessment & Plan (1) ICD (implantable cardioverter-defibrillator) in place: Comment: Medtronic single-chamber for primary prevention Code(s): Z95.810 - Presence of automatic (implantable) cardiac defibrillator Category: Medical Plan: See above Coding Level of Care Code Procedure Only Diagnoses ICD (implantable cardioverter-defibrillator) in place Z95.810 CPT Codes Cardiac Device Check - Cardiac Device 13: 59412-Jucisp Cardiac Interrogation, implant defibrillator w/interim ([id number])
== END ==
PROVIDERS: PCP Emergency Medicine; Visit Provider Internal Medicine Cardiovascular Disease
DX: Z45.02 Encounter for adjustment and management of automatic implantable cardiac defibrillator (principal)
CPT/HCPCS: 93295

== ENCOUNTER → 2024-08-04 23:59 | Outpatient (BNV) | payer MEDICAID, SELFPAY ==
--- NOTE | 2024-08-09 13:09 | A.OFFVIS_ITS ---
Intake Visit Reasons: Remote HF monitoring- Medtronic Allergies No Known Allergies Allergy (Verified 05/07/24 16:26) ON LICENSE OF [facility] Medical History (Updated 05/26/24 @ 13:23 by Kenny Diaz MD) SVT (supraventricular tachycardia) ICD (implantable cardioverter-defibrillator) in place CAD (coronary artery disease) Heart failure with reduced ejection fraction Social History (Updated 03/16/24 @ 09:13 by Kita Whiteside) Alcohol intake: current Alcohol intake frequency: holidays/special occasions only Patient Tobacco Use Status: Never used Tobacco Current occupational status: unemployed Current occupation: left hand dominant Office Procedures Cardiac Device Check Cardiac Device Check Details: Remote heart failure report generated 08/04/2024. Heart failure parameters are stable [id number] Cardiac Device Interrogation, cardio physiologic monitor Procedure code (CPT) selection complete Assessment & Plan Assessment & Plan (1) ICD (implantable cardioverter-defibrillator) in place: Comment: Medtronic single-chamber for primary prevention Code(s): Z95.810 - Presence of automatic (implantable) cardiac defibrillator Category: Medical Plan: See above Coding Level of Care Code Procedure Only Diagnoses ICD (implantable cardioverter-defibrillator) in place Z95.810 CPT Codes Cardiac Device Check - Cardiac Device 15: 62594-Lmgxmi Cardiac Device Interrogation, cardio physiologic monitor ([id number])
== END ==
PROVIDERS: PCP Emergency Medicine; Visit Provider Internal Medicine Cardiovascular Disease
DX: Z45.018 Encounter for adjustment and management of other part of cardiac pacemaker (principal)
CPT/HCPCS: 93297

== ENCOUNTER 2024-08-11 08:28 | Outpatient (REF) | payer MEDICAID, SELFPAY ==
--- OUTSIDE RECORDS SUMMARY | 2024-08-11 08:42 | XMS_ITS | Encounter Summary ---
Author Organization [employer] Address [address] [place] [address] Care Team Providers Care Driver Recruiter Name Role Phone Ingris Ruiz INTERNET [employer] SPECIALIST Primary Care Provider [phone] SawCortes DMD Unavailable [phone] Reason for Visit * Reason Onset Date Comments Med Refill 07/27/2024 Encounter Details Date Type Department Care Team (Late st Contact Info) Description 07/15/2024 Refill [facility] [address] [place], [place] [phone] Ingris Ruiz FNP [address] [place] [address] Social History Tobacco Use Types Packs/Day Years Used Date Smoking Tobacco: Former Cigarettes 1 29 S tarted: 1992 Passive Smoke Exposure: Never Smokeless Tobacco: Never Alcohol Use Standard Drinks/Week Comments Yes 12 (1 standard drink = 0.6 oz pu re alcohol) 12-14 cans /day Alcohol Answer Date Recorded Q1: How often do you have a drink containing alc ohol? 2 02/13/2024 Q2: How many drinks containi ng alcohol do you have on a typical day when you are drinking? 5 02/13/2024 Q3: How often do you have six or more drinks on one occasion? 2 02/13/2024 Depression Answer Date Recorded Patient Health Questionnaire-9 Score 0 02/12/2024 Patient Health Questionnaire-9 Score 0 02/12/2024 Last PHQ-9: Questionnaire Data Not on file 1 04/13/2023 Housing Stability Answer Date Recorded What is your housing situation today? I have jacob rosario 02/05/[address] you li ve. Do you have problems with any of the following? None of the above 02/05/2024 Food Insecurity Answer Date Recorded Within the past 12 months, y ou worried that your food would run out before you got money to buy more: Never True 02/05/2024 Within the past 12 months,th e food you bought just didn't last and you didn't have enough money to get more: Never True 04/2023 Transportation Answer Date Recorded In the past 12 months, has l ack of transportation kept you from medical appts, meetings, work or from getting things needed for daily living? No 02/05/2024 Utilities Answer Date Recorded In the past 12 months, has t he electric, gas, oil or water company threatened to shut off services in your home? No 02/05/2024 Depression Answer Date Recorded Patient Health Questionnaire-2 Score 0 02/12/2024 Internet Access Answer Date Recorded Internet Access Q1 Yes 02/05/2024 Internet Access Q2 Not on file 02/05/2024 Sex and Gender Information Value Date Recorded Sex Assigned at Male 01/13/2024 1:55 PM EDT Legal Sex Male 9:13 AM EDT Gender Identity Male 01/13/2024 1:55 PM EDT Sexual Orientation Straight 01/13/2024 1: 56 PM EDT documented as of this encounter Plan of Treatment Upcoming Encounters Date Type Department Care Team (Late st Contact Info) Description 09/12/2024 1:00 PM EDT Office Visit [facility] D[facility] [address] [place] [address] Vida Pérez 04/14/2025 10:30 AM EST Medication Management [facility] [address] [place], [place] [phone] Patricia Mendoza, SarahD [address] [place], [place] [phone] documented as of this encounter Visit Diagnoses Not on filedocumented in this encounter Additional Health Concerns Assessment Noted Time PHQ-9 Depression Total Score: 0 02/12/20 24 1:13 PM EST documented as of this encounter Care Teams Driver Recruiter Relationship Specialty Start Date End Date Ingris Ruiz FNP [address] [place] [address] PCP - General Family Medicine 02/12/24 [place] DMD [address] [place] [address] Dentist 05/26/24 documented as of this encounter
--- OUTSIDE RECORDS SUMMARY | 2024-08-11 08:42 | XMS_ITS | Clinical Summary ---
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 1 kit 01/13/20 24 025 Active Sodium Fluoride 1.1 % creamIndication s:Dental caries Joes teeth for 2 minutes, morning and night. Spit, do not rinse. Do not eat or drink anything for 30 minutes following use. 112 g 3 03/08/20 24 Active spironolactone (Aldactone) 25 MG tablet Take 1 tablet (25 mg) by mouth Once per day. 30 tablet 5 03/22/20 24 025 Active Aspirin Low Dose 81 MG chewable tablet TAKE 1 TABLET BY MOUTH EVERY MORNING (CHEW) 90 tablet 1 07/16/19 25 Active Jardiance 10 MG TAKE 1 TABLET BY MOUTH EVERY MORNING 30 tablet 5 07/16/19 25 Active atorvastatin (Lipitor) 40 MG tablet TAKE 1 TABLET BY MOUTH AT BEDTIME 90 tablet 1 07/28/19 25 Active furosemide (Lasix) 40 MG tablet Take 1 tablet (40 mg) by mouth Once per day. 30 tablet 8 07/28/19 25 026 Active metoprolol succinate XL (Toprol-XL) 100 MG 24 hr tablet Take 100 mg by mouth in the morning. 05/26/19 25 Active Entresto 49-51 MG tablet Take 1 tablet by mouth 2 times daily. 07/14/19 25 Active furosemide (Lasix) 40 MG tablet Take 40 mg by mouth Once per day. Active sacubitril-vals ml (Entresto) 24-26 MG tablet Take 1 tablet by mouth 2 times daily. 60 tablet 5 01/13/20 24 025 Discontinued(Ot her) digoxin (Lanoxin) 125 MCG tablet Take 1 tablet (125 mcg) by mouth Once per day. 30 tablet 5 01/13/20 24 025 Discontinued(Ot her) aspirin (Aspirin Childrens) 81 MG chewable tablet Chew 1 tablet (81 mg) Once per day. 30 tablet 5 01/13/20 025 Discontinued isosorbide mononitrate ER (Imdur) 30 MG 24 hr tablet Take 1 tablet (30 mg) by mouth Once per day. Do not crush or chew. 30 tablet 5 01/13/20 025 Discontinued(Ot her) empagliflozin (Jardiance) 10 MG Take 1 tablet (10 mg) by mouth Once per day. 30 tablet 5 01/13/20 24 025 Discontinued furosemide (Lasix) 20 MG tablet Take 1 tablet (20 mg) by mouth 2 times daily. 60 tablet 5 01/13/20 24 025 Discontinued(Ot her) atorvastatin (Lipitor) 40 MG tablet Take 1 tablet (40 mg) by mouth Once per day. 30 tablet 5 01/13/20 24 025 Discontinued metoprolol succinate XL (Toprol XL) 50 MG 24 hr tablet Take 1 tablet (50 mg) by mouth Once per day. Do not crush or chew. 30 tablet 5 03/22/20 025 Discontinued(Ot her) Active Problems Problem Noted Date Diagnosed Date Screening for colon cancer 07/27/2024 Alcohol use disorder 02/13/2024 Assessment & Plan (03/17/2024 8:40 AM EST): Currently drinks 10-14 cans of beer daily plans to cut down on amount of alcohol intake In denial of alcohol use disorder Educated patient about alcohol use disease, available resources and support for quitting. Education on possible negative health outcomes and impact on cardiomyopathy Declined quitting, support and referral to CRS Plan Continue to educate patient Assessment & Plan (02/13/2024 11:32 AM EST): Currently drinks 10-14 cans of beer daily In denial of alcohol use disorder Educated patient about alcohol use disease, available resources and support for quitting. Education on possible negative health outcomes and impact on cardiomyopathy Declined quitting, support and referral to CRS Plan Will continue to outreach counselor patient at every visit Dietary counseling 02/13/2024 Assessment & Plan (02/13/2024 12:06 PM EST): Eat 3 meals a day, especially breakfast Eat healthy and focus on healthy food choices daily fruits, vegetables, grains, low fat milk, low carbohydrate and fat Maintain healthy weight. Exercise counseling 02/13/2024 Assessment & Plan (02/13/2024 12:05 PM EST): Make exercise plan with your lye boiler At risk for dental problems 02/13/2024 Irregular heart rhythm 02/13/2024 Assessment & Plan (02/13/2024 12:02 PM EST): 12 lead EKG Sinus Rhythm with slight intraventricular conduction delay Dupuytren contracture of both hands 02/12/2024 Assessment & Plan (03/17/2024 8:37 AM EST): Follow up appointment with hand surgeon Assessment & Plan (02/13/2024 11:24 AM EST): Bilateral flexion contractures of the hands digits worse on the 4th and 5th digits with nodules and cords. Limited mobility of the fingers Limited field engineer strength Plan Referral to hand surgery AICD (automatic cardioverter/defibrillator) pres ent 02/12/2024 Assessment & Plan (02/13/2024 11:37 AM EST): Implanted cardio defibrillator device on the left upper quadrant of the chest Plan Race Board Attendant referral Ischemic cardiomyopathy 01/13/2024 Assessment & Plan (02/12/2024 3:14 PM EST): Referral to Race Board Attendant Chronic heart failure 01/13/2024 Overview (02/12/2024): EF 45-50% Last echo 02/2023 in [place] Assessment & Plan (03/17/2024 8:35 AM EST): Irregular heart beat In planted cardio fibrillator Patient did not follow up on lye boiler appointment Plan Follow up appointment with lye boiler Dietary counseling History of appendectomy 01/13/2024 History of right inguinal hernia repair 01/13/20 24 Resolved Problems Problem Noted Date Diagnosed Date Resolved Date Vision problem 02/13/2024 06/07/2024 Encounters Date Type Department Care Team Description 07/29/2024 Telephone [facility] MEDICINE [address] [place] [phone] Cami Damico RN 07/27/2024 9:30 AM EDT Office Visit [address] [address] Ingris Ruiz FNP Chronic heart failure, unspecified heart failure type (CMS/HCC) (Primary Dx); Screening for colon cancer; Dupuytren contracture of both hands; Alcohol use disorder 07/27/2024 Travel 07/26/2024 Telephone [facility] MEDICINE [address] [place] [phone] Ingris Ruiz FNP CHART PREP 07/26/2024 Refill [facility] WALK-IN CENTER [address] [place] [phone] Dennis Ramirez MD 07/21/2024 10:00 AM EDT Office Visit [facility] ADULT DENTAL [address] [place] [address] Vida Pérez 07/20/2024 Travel 07/19/2024 Telephone [facility] MEDICINE [address] [place] [phone] Ingris Ruiz FNP Recall 07/15/2024 Refill [facility] MEDICINE [address] [place] [address] Ingris Ruiz FNP 07/14/2024 Travel 07/09/2024 Refill [facility] W[facility] [address] [place] [phone] Dennis Ramirez MD 07/08/2024 Travel 07/07/2024 11:00 AM EDT Office Visit [facility] ADULT DENTAL [address] [place] [address] Vida Pérez 07/01/2024 Travel 06/27/2024 9:00 AM EDT Office Visit [facility] ADULT DENTAL [address] [place] [address] [place] DMD Dental caries (Primary Dx) 06/27/2024 Travel 06/27/2024 Refill [facility] W[facility] [address] [place] [address] Dennis Ramirez MD 06/17/2024 Population Health Risk Score [facility] ([facility] [address] [phone] Provider, Population Health Generic 06/07/2024 10:30 AM EST Office Visit [facility] OPTOMETRY [address] [place] [address] Clementina Aviles, OD Presbyopia (Primary Dx); Posterior vitreous detachment of both eyes 06/07/2024 Travel 05/31/2024 Travel 05/26/2024 9:00 AM EST Office Visit [facility] ADULT DENTAL [address] [place] [address] [place] DMD Dental caries (Primary Dx) 05/19/2024 Travel from Last 3 Months Immunizations Name Administration Dates Next Due Influenza, seasonal, injectable, preservative fr ee 02/12/2024 Pfizer Covid-19 Vaccine 12+ 04/21/2024 Pneumococcal Conjugate PCV 20 02/12/2024 Tdap 04/21/2024 Zoster, Recombinant 06/28/2024,04/26/2024 Social History Tobacco Use Types Packs/Day Years Used Date Smoking Tobacco: Former Cigarettes 1 29 S tarted: 1992 Passive Smoke Exposure: Never Smokeless Tobacco: Never Tobacco Cessation:Counseling Given: Not Answered Alcohol Use Standard Drinks/Week Comments Yes 12 [...] Orientation Straight 01/13/2024 1: 56 PM EDT Last Filed Vital Signs Vital Sign Reading Time Taken Comments Blood Pressure 116/72 07/27/2024 9:31 AM EDT Pulse 96 07/27/2024 9:31 AM EDT Temperature 37.2 ??C (98.9 ??F) 07/27/2024 9:31 AM ED T Respiratory Rate 20 07/27/2024 9:31 AM EDT Oxygen Saturation 98% 07/27/2024 9:31 AM EDT Inhaled Oxygen Concentration - - Weight 86.2 kg (190 lb) 07/27/2024 9:31 AM EDT Height 182.9 cm (6') 07/27/2024 9:31 AM EDT Body Mass Index 25.77 07/27/2024 9:31 AM EDT Plan of Treatment Upcoming Encounters Date Type Department Care Team (Late st Contact Info) Description 09/12/2024 1:00 PM EDT Office Visit [facility] CHC ADULT DENTAL [address] [place] [address] Vida Pérez 04/14/2025 10:30 AM EST Medication Management [facility] MEDICINE [address] [place], [place] [phone] Patricia Mendoza, PharmD [address] [place] [address] Health Maintenance Due Date Last Done Comments CT Colonography 1975 Colonoscopy 1975 Colorectal Cancer Screening 1975 FIT DNA/Cologuard 1974 FIT 1975 FOBT 1975 HIV Screening 1975 Sigmoidoscopy 1975 Family Planning (PISQ) 1989 Hepatitis B Vaccines (1 of 3 - 19+ 3-dose series) 1993 Dental Oral Exam 09/07/2024 03/08/2024 Dental Prophylaxis 09/07/2024 03/08/2024 SDOH Screening 02/04/2025 02/05/2024 Alcohol/Substance Use Screening 02/11/2025 02/12/2024 Depression Screening 02/11/2025 02/12/2024, 02/12/2024 Dental X-Ray: Bitewings 03/09/2025 03/08/2024 Tobacco Screening 07/21/2025 07/21/2024 Dental X-Ray: Full Mouth 03/09/2027 03/08/2024 Lipid Panel 01/14/2029 01/15/2024 DTaP/Tdap/Td Vaccines (2 - T d or Tdap) 04/21/2034 04/21/2024 RSV Patients and Patients Aged 60 years or older (1 - 1-dose 75+ series) 2049 Hepatitis C Screening Completed 01/15/2024 Influenza Vaccine Completed 02/12/2024 Pneumococcal Vaccine: 50+ Years Completed 02/12/2024 COVID-19 Vaccine Completed 04/21/2024 Zoster Vaccines Completed 06/28/2024, 04/26/2024 HIB Vaccines Aged Out No longer eligi ble based on patient's age to complete this topic HPV Vaccines Aged Out No longer eligi ble based on patient's age to complete this topic Hepatitis A Vaccines Aged Out No long er eligible based on patient's age to complete this topic IPV Vaccines Aged Out No longer eligi ble based on patient's age to complete this topic Meningococcal Vaccine Aged Out No leno rajesh eligible based on patient's age to complete this topic RSV under 20 months Aged Out No longe r eligible based on patient's age to complete this topic Rotavirus Vaccines Aged Out No longer eligible based on patient's age to complete this topic Procedures Procedure Name Priority Date/Time Associated Diagnosis Comments ORAL HYGIENE INSTRUCTIONS Routine 07/21/2024 10:00 AM EDT CASE PRESENTATION, DETAILED AND EXTENSIVE TREATMENT PLANNING Routine 07/21/2024 10:00 AM EDT LR PERIODONTAL SCALING AND ROOT PLANING - 4 OR MORE TEETH PER QUADRANT Routine 07/21/2024 10:00 AM EDT UR PERIODONTAL SCALING AND ROOT PLANING - 4 OR MORE TEETH PER QUADRANT Routine 07/21/2024 10:00 AM EDT ORAL HYGIENE INSTRUCTIONS Routine 07/07/2024 11:00 AM EDT CASE PRESENTATION, DETAILED AND EXTENSIVE TREATMENT PLANNING Routine 07/07/2024 11:00 AM EDT LL PERIODONTAL SCALING AND ROOT PLANING - 4 OR MORE TEETH PER QUADRANT Routine 07/07/2024 11:00 AM EDT UL PERIODONTAL SCALING AND ROOT PLANING - 4 OR MORE TEETH PER QUADRANT Routine 07/07/2024 11:00 AM EDT CASE PRESENTATION, DETAILED AND EXTENSIVE TREATMENT PLANNING Routine 06/27/2024 9:00 AM EDT Dental caries 4 DO RESIN-BASED COMPOSITE - 2 SURF, POSTERIOR Routine 06/27/2024 9:00 AM EDT Dental caries 3 MO RESIN-BASED COMPOSITE - 2 SURF, POSTERIOR Routine 06/27/2024 9:00 AM EDT Dental caries CASE PRESENTATION, DETAILED AND EXTENSIVE TREATMENT PLANNING Routine 05/26/2024 9:00 AM EST Dental caries 12 MOD RESIN-BASED COMPOSITE - 3 SURF, POSTERIOR Routine 05/26/2024 9:00 AM EST Dental caries 11 DL RESIN-BASED COMPOSITE - 2 SURF, ANTERIOR Routine 05/26/2024 9:00 AM EST Dental caries PROPHYLAXIS - ADULT Routine 03/08/2024 2 :00 PM EST Dental caries Supraeruption of teeth Periodontal disease INTRAORAL - COMPLETE SERIES OF RADIOGRAPHIC IMAGES Routine 03/08/2024 2:00 PM EST Dental caries Supraeruption of teeth Periodontal disease COMPREHENSIVE ORAL EVALUATION - NEW OR ESTABLISHED PATIENT Routine 03/08/2024 2:00 PM EST Dental caries Supraeruption of teeth Periodontal disease HEPATITIS C AB W/REFL TO HCV RNA, QN, PCR Routine 01/15/2024 8:52 AM EDT Chronic congestive heart failure, unspecified heart failure type (CMS/HCC) LIPID PANEL, STANDARD Routine 01/15/2024 8:52 AM EDT Chronic congestive heart failure, unspecified heart failure type (CMS/HCC) from Last 3 Months or Most Recently Relevant to Health Maintenance Results * Hepatitis C Antibody with Reflex to HCV, RNA, Quantitative, Real-Time PCR (01/15/2024 8:52 AM EDT) Hepatitis C Antibody Nonreactive Nonreactive [facility] Comment:Antibodies to HCV no t detected; does not exclude early acuteHCV infection. Blood Venous blood specimen / Unknown 01/15/2024 8:52 AM EDT 01/15/2024 11:17 AM EDT us Dennis Ramirez MD LAB BLOOD ORDERABLES Final Resul t [facility] [address] [place] [phone] [phone] * (ABNORMAL) Lipid Panel, Standard (01/15/2024 8:52 AM EDT) Triglycerides 155(H) <150 mg/dL [facility] Comment:Desirable Triglyceri de: less than 150 mg/dLBorderline High Triglyceride 150-199 mg/dLHigh Triglyceride: 200-499 mg/dLVery High Triglyceride: greater than or equal to 5OO mg/dL Cholesterol 192 <200 mg/dL [facility] Comment:Desirable Cholestero l: less than 200 mg/dLBorderline High Cholesterol: 200-239 mg/dLHigh Cholesterol: greater than 239 mg/dL LDL Cholesterol Calculated 114(H) <100 mg/dL [facility] Comment:Desirable LDL: less than 100 mg/dLNear Optimal/Above Optimal LDL: 110- 129 mg/dLBorderline High LDL: 130-159 mg/dLHigh LDL: 160-189 mg/dLVery High LDL: greater than or equal to 190 mg/dL HDL Cholesterol 47 >40 mg/dL [facility] Comment:Desirable HDL: great er than 40 mg/dL Note: This HDL assay may give artificially low results in patients with liver disease. Blood Venous blood specimen / Unknown 01/15/2024 8:52 AM EDT 01/15/2024 11:17 AM EDT us Dennis Ramirez MD LAB BLOOD ORDERABLES Final Resul t [facility] [address] [place] [address] [phone] from Last 3 Months or Most Recently Relevant to Health Maintenance Insurance [facility] C3 [place] STAND ADULT Care Teams Social Media Strategist Relationship Specialty Start Date End Date Ingris Ruiz FNP [address] [place] [address] PCP - General Family Medicine 02/12/24 [place] DMD [address] [place] [phone] Dentist 05/26/24
[2024-08-11 09:25] LABS: B Type Natriuretic Peptide 52 pg/mL (<100)
[2024-08-11 09:28] LABS: Anion Gap 14 (12-20); Blood Urea Nitrogen 14 mg/dL (9-16); Calcium 9.3 mg/dL (8.4-10.2); Carbon Dioxide 24 mmol/L (22-29); Chloride 98 mmol/L (96-108); Cholesterol 168 mg/dL (<200); Estimated Glomerular Filt Rate > 60; Glucose Random 72 mg/dL (60-115); HDL Cholesterol 38 mg/dL (>40); LDL Cholesterol Calculated 64 mg/dL (<100); Potassium 4.5 mmol/L (3.3-5.1); Sodium 131 mmol/L (135-145); Triglycerides 334 mg/dL (<150)
[2024-08-16 09:09] LABS: Lipoprotein A <10 nmol/L (<75)
[2024-08-16 16:37] LABS: Apolipoprotein B 81 mg/dL (<90)
== END 2024-08-11 08:29 | disposition home or self-care (01) ==
LOC: HO.LAB 08:28
PROVIDERS: Visit Provider Internal Medicine Cardiovascular Disease
DX: I25.10 Atherosclerotic heart disease of native coronary artery without angina pectoris (principal); I11.0 Hypertensive heart disease with heart failure; I50.20 Unspecified systolic (congestive) heart failure; E78.5 Hyperlipidemia, unspecified
CPT/HCPCS: 36415; 80048; 80061; 82172; 83695; 83880; 86141

== ENCOUNTER → 2024-08-19 10:56 | Outpatient (REF) | payer MEDICAID, SELFPAY ==
--- NOTE | 2024-08-19 10:58 | CA_ITS ---
Transthoracic Echocardiogram Patient (Last, First, Middle): Chandler Arreguin, Gender: Male Date of : 1975 Age: 49 Procedure Date: 08/19/2024 Procedure Type: Transthoracic Echocardiogram Location: OP Height: 182. cm Weight: 81.65 kg BSA: 2.03 m2 Heart Rate: 66 bpm BP: 95 / 65 mmHg Fluoroscope Operator: ANANT Martini MD: Kenny Diaz MD Homicide Squad Sergeant: Kenny Diaz MD Symptoms: I50.20 - Unspecified systolic (congestive) heart failure Study Quality: Adequate ECG Rhythm: Sinus Conclusions: - 1. Normal LV ejection fraction is 60-65% grade 1 diastolic dysfunction 2. Normal cardiac valvular Dopplers 3. Normal RV systolic pressure 4. No gross pericardial effusion Findings Left Ventricle Normal left ventricular size, thickness, and systolic function. The visually estimated ejection fraction is between 60-65%. Spectral Doppler is indicative of an impaired relaxation filling pattern. E/E prime ratio is <8, consistent with normal filling pressures. Evidence suggests grade I (mild) diastolic dysfunction. Right Ventricle Normal right ventricular cavity size and systolic function. There is an ICD wire seen in the right ventricle. Atria Both atria are normal in size. There is no evidence of interatrial shunt. Aortic Valve Normal aortic valve structure and function. There is no aortic valve stenosis. There is no aortic valve regurgitation. Mitral Valve Normal mitral valve structure and function. There is no mitral valve stenosis. Pulmonic Valve The pulmonic valve is likely normal. There is trace pulmonic valve regurgitation. Tricuspid Valve Normal tricuspid valve structure. There is trace tricuspid valve regurgitation. The right ventricular systolic pressure is normal. The right ventricular systolic pressure is 18 mmHg. Normal right atrial pressure. There is no evidence of pulmonary hypertension. Great Vessels All visible segments of the aorta are normal in size. The pulmonary artery was not well visualized. Venous The inferior vena cava is normal in size and collapses greater than 50% with inspiration. Pericardium/Pleural There is no evidence of pericardial effusion. Prior Study Comparison No prior study available for comparison. Measurements 2D Linear Measurements IVSd: 1.12 0.6-0.9/0.6-1.0 cm LVIDd: 4.49 3.9-5.3/4.2-5.9 cm LVIDd Index: 2.21 2.4-3.2/2.2-3.1 cm/m2 LVIDs: 2.52 2.0-3.6 cm LVPWd: 1.11 0.7-1.1 cm LA Diam: 3.00 2.7-3.8/3.0-4.0 cm LAIDs Index: 1.48 1.5-2.3 cm/m2 LV Mass: 221.46 67-162/88-224 g LV Mass Index: 109.10 43-95/49-115 g/m2 LVOT Diam: 2.20 3.0+(-)1.3 cm 2D Systolic Function EF 4C: 59.90 >55% EF 2C: 68.00 >55% EF BiP: 64.10 >55% Mitral Valve MV Pk E: 0.52 MV PK A: 0.76 MV Decel Time: 300.00 E/A: 0.70 E'Lateral: 10.00 E'Medial: 6.42 E/E' Med: 8.10 E/E' Lat: 5.20 PHT: 88.00 MVA PHT: 2.50 Decel [place]: 1.74 Aortic Valve AoV Pk Nemesio: 1.33 AoV Mn Nemesio: 0.97 AoV VTI: 0.28 AoV Pk Grad: 7.00 Aov Mn Grad: 4.00 MERLINE Cont.VTI: 2.32 LVOT LVOT Pk Nemesio: 0.88 LVOT Mn Nemesio: 0.64 LVOT VTI: 0.17 LVOT Pk Grad: 3.00 LVOT Mn Grad: 2.00 LVOT Diam: 2.20 LVOT Area: 3.80 Diastolic Function MV Pk E: 0.52 MV Pk A: 0.76 E/A: 0.70 E'Medial: 6.42 E/E' Med: 8.10 E' Laterial: 10.00 E/E' Lat: 5.20 Right Ventricle TAPSE (mm): 13.40 TVS' Nemesio: 10.60 Tricuspid Valve TR Pk Nemesio: 1.94 TR Pk Grad: 15.00 RA Press: 3.00 RVSP: 18.00 Great Vessels Aorta Sinus of Valsalva: 3.30 2.0-3.5 cm Ao Asc: 3.00 2.1-3.4 cm Ao Arch: 2.70 Pulmonary Valve PV Pk Nemesio: 0.80 Peak PV Grad: 3.00 Updated in Other Vendor System with Status of Final Kenny Diaz MD electronically signed on 08/20/2024 12:17:00 PM with status of Final
== END ==
LOC: HO.CARD 10:56
PROVIDERS: PCP Emergency Medicine; Visit Provider Internal Medicine Cardiovascular Disease
DX: I50.20 Unspecified systolic (congestive) heart failure (principal)
CPT/HCPCS: 93306

== ENCOUNTER → 2024-08-19 10:58 | Outpatient (BNV) | payer MEDICAID, SELFPAY | PROVIDERS: PCP Emergency Medicine; Visit Provider Internal Medicine Cardiovascular Disease | DX: I50.20 Unspecified systolic (congestive) heart failure (principal) | CPT/HCPCS: 93306 ==

== ENCOUNTER 2024-08-25 11:25 | Outpatient (AMB) | payer MEDICAID, SELFPAY ==
[2024-08-25 11:29] VITALS: BP 120/76; PULSE 91; BMI 25.1
--- NOTE | 2024-08-25 11:29 | A.OFFVIS_ITS ---
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 This overall shows normal structure of the heart with normal LV ejection fraction without major valvular abnormality. He has not had any cardiac symptoms. He has not had any worsening heart failure symptoms with no worsening shortness of breath, orthopnea, PND. He denies any lightheadedness, palpitation, ICD discharge. Takes all his medications. He is still currently off work because of his heart condition but he has no overall physical limitations. Currently still doing cardiac rehab. [facility] Medical History (Updated 08/25/24 @ 12:31 by Kenny Diaz MD) Heart failure with reduced ejection fraction SVT (supraventricular tachycardia) ICD (implantable cardioverter-defibrillator) in place CAD (coronary artery disease) Social History Alcohol intake: current Alcohol intake frequency: holidays/special occasions only Patient Tobacco Use Status: Never used Tobacco Current occupational status: unemployed Current occupation: left hand dominant Review of Systems Const Denies chills, Denies fatigue, Denies fever(s), Denies frequent falls, Denies weakness, Denies weight gain and Denies weight loss ENT Denies dizziness Card Denies chest pain, Denies leg edema, Denies lightheadedness, Denies palpitations, Denies dyspnea, Denies dyspnea on exertion, Denies orthopnea and Denies other (loss of consciousness) Resp Denies cough, Denies dyspnea and Denies dyspnea on exertion GI Denies hematochezia and Denies change in stool character Musc Denies abnormal gait, Denies muscle weakness, Denies numbness, Denies radiating pain into limb and Denies tingling Neuro Denies abnormal gait, Denies dizziness, Denies frequent falls, Denies numbness, Denies tingling and Denies weakness Endo Denies fatigue and Denies palpitations Physical Exam Vital Signs: Last Vital Signs Pulse 91 08/25/24 11:29 BP 120/76 08/25/24 11:29 BMI result Body Mass Index 25.1 Const General: cooperative, comfortable, no acute distress, well developed, alert and awake Nutritional Appearance: average body habitus and well nourished Orientation/consciousness: patient oriented x3 Limitations: no limitations HEENT Head: Yes normocephalic and Yes atraumatic Neck Neck: Yes trachea midline, Yes supple and Yes no JVD Resp Effort & Inspection: normal respiratory effort Auscultation: clear to auscultation bilaterally Cardio Jugular venous distension: no JVD Palpation: abnormal PMI displaced PMI Rate: regular rate Rhythm: regular rhythm Heart sounds: S1 normal heart sound present, S2 normal heart sound present, no click, no gallops, no murmurs and no rubs GI Auscultation: normal bowel sounds Skin General skin exam: no rashes or lesions noted Neuro General: patient oriented x3 and no focal motor deficits Extrem General: Yes no clubbing, cyanosis or edema Office Procedures Cardiac Device Check Cardiac Device Check Details: Single-chamber Medtronic ICD in place. Programmed in VVI at 40 beats per mi nute. No arrhythmias noted. Ventricular pacing thresholds excellent and reprogrammed to enhance battery life. Ventricular sensing is excellent. Pacing and shock lead impedance is stable. Battery life is at 10 years [id number] Cardiac Device Check, single lead implantable defibrillator Procedure code (CPT) selection complete Assessment & Plan Assessment & Plan (1) Heart failure with recovered ejection fraction (HFrecEF): Code(s): I50.20 - Unspecified systolic (congestive) heart failure Category: Medical Plan: Heart failure with recovered ejection fraction with LV ejection fraction within normal limits on current neurohormonal modulation. No signs or symptoms of heart failure. Gradually reduce furosemide, I have advised him to reduce to 20 mg daily and monitor for weight loss. If he has no recurrent heart failure symptoms can discontinue furosemide and use it as need be. Continue neurohormonal modulation with Entresto, metoprolol, Jardiance as well as spironolactone therapy. Importance of medical therapy was discussed. Current point time from cardiac perspective he has no clear limitations disability. (2) CAD (coronary artery disease): Code(s): I25.10 - Atherosclerotic heart disease of [place] coronary artery without angina pectoris Category: Medical Plan: CAD with branch vessel disease without any significant symptoms at current point time. Advised to continue aggressive medical therapy. Continue low-dose aspiri n therapy as well as high-intensity statin therapy. Target goal LDL less than 70 mg/dL. Blood pressure is currently well optimized. Encouraged to participate in regular physical activity as tolerated. (3) ICD (implantable cardioverter-defibrillator) in place: Comment: [employer] single-chamber for primary prevention Code(s): Z95.810 - Presence of automatic (implantable) cardiac defibrillator Category: Medical Plan: ICD in place for primary prevention. ICD is working well. Reprogrammed for adequate function. Will follow remotely for heart failure as well as device check. Follow up in the clinic in 6 months time. Follow up in the clinic in 6 months time, sooner p.r.n.. Thank you for allowing me to partake in his care Medications: Changed From furosemide 40 mg PO QAM To furosemide 20 mg PO QAM Coding Level of Care Code Est Pt Level 4 (07000) Complex EM visit Add On G2211 Diagnoses Heart failure with recovered ejection fraction (HFrecEF) I50.20 CAD (coronary artery disease) I25.10 ICD (implantable cardioverter-defibrillator) in place Z95.810 CPT Codes Cardiac Device Check - Cardiac Device 4: [id number] Cardiac Device Check, single lead implantable defibrillator ([id number])
== END 2024-08-25 11:44 | disposition home or self-care (01) ==
LOC: HO.HCS 11:26
PROVIDERS: PCP Emergency Medicine; Visit Provider Internal Medicine Cardiovascular Disease
DX: I50.20 Unspecified systolic (congestive) heart failure (principal); I25.10 Atherosclerotic heart disease of native coronary artery without angina pectoris; Z95.810 Presence of automatic (implantable) cardiac defibrillator
CPT/HCPCS: 93282; 99214

== ENCOUNTER → 2024-08-25 11:25 | Outpatient (BNVA) | payer MEDICAID, SELFPAY | PROVIDERS: PCP Emergency Medicine; Visit Provider Internal Medicine Cardiovascular Disease | DX: I50.20 Unspecified systolic (congestive) heart failure (principal); I25.10 Atherosclerotic heart disease of native coronary artery without angina pectoris; Z95.810 Presence of automatic (implantable) cardiac defibrillator | CPT/HCPCS: 99212 ==

== ENCOUNTER → 2024-09-06 23:59 | Outpatient (BNV) | payer MEDICAID, SELFPAY ==
--- NOTE | 2024-09-07 10:56 | MHC.OFFVIS ---
Intake Visit Reasons: Remote HF monitoring- Medtronic Allergies No Known Allergies Allergy (Verified 05/07/24 16:26) [facility] Medical History (Updated 08/25/24 @ 12:31 by Kenny Diaz MD) Heart failure with reduced ejection fraction SVT (supraventricular tachycardia) ICD (implantable cardioverter-defibrillator) in place CAD (coronary artery disease) Social History Alcohol intake: current Alcohol intake frequency: holidays/special occasions only Patient Tobacco Use Status: Never used Tobacco Current occupational status: unemployed Current occupation: left hand dominant Office Procedures Cardiac Device Check Cardiac Device Check Details: Remote heart failure report generated 09/06/2024. Heart failure parameters are stable [id number] Cardiac Device Interrogation, cardio physiologic monitor Procedure code (CPT) selection complete Assessment & Plan Assessment & Plan (1) ICD (implantable cardioverter-defibrillator) in place: Comment: Medtronic single-chamber for primary prevention Code(s): Z95.810 - Presence of automatic (implantable) cardiac defibrillator Category: Medical Plan: See above Coding Level of Care Code Procedure Only Diagnoses ICD (implantable cardioverter-defibrillator) in place Z95.810 CPT Codes Cardiac Device Check - Cardiac Device 15: [id number] Cardiac Device Interrogation, cardio physiologic monitor ([id number])
== END ==
PROVIDERS: PCP Emergency Medicine; Visit Provider Internal Medicine Cardiovascular Disease
DX: Z45.02 Encounter for adjustment and management of automatic implantable cardiac defibrillator (principal)
CPT/HCPCS: 93297

== ENCOUNTER 2024-09-28 10:00 | Outpatient (RCR) | payer MEDICAID, SELFPAY ==
--- NOTE | 2024-06-15 11:49 | ECG_ITS ---
Test Reason : SVT Blood Pressure : */* mmHG Vent. Rate : 64 BPM Atrial Rate : 64 BPM P-R Int : 174 ms QRS Dur : 92 ms QT Int : 406 ms P-R-T Axes : 65 77 84 degrees QTcB Int : 418 ms Normal sinus rhythm Normal ECG When compared with ECG of 07-May-2024 16:20, Nonspecific T wave abnormality no longer evident in Inferior leads Referred By: Kenny Diaz Electronically Signed By: CAILIN DUMONT
== END 2024-10-03 12:30 | disposition home or self-care (01) ==
LOC: HO.CR 10:00
PROVIDERS: PCP Emergency Medicine; Visit Provider Internal Medicine Cardiovascular Disease
DX: I50.20 Unspecified systolic (congestive) heart failure (principal)
CPT/HCPCS: 93005; 93798

== ENCOUNTER → 2024-10-06 23:59 | Outpatient (BNV) | payer MEDICAID, SELFPAY ==
--- NOTE | 2024-10-11 13:57 | A.OFFVIS_ITS ---
Intake Visit Reasons: Remote HF monitoring- Medtronic Allergies No Known Allergies Allergy (Verified 05/07/24 16:26) [facility] Medical History (Updated 08/25/24 @ 12:31 by Kenny Diaz MD) Heart failure with reduced ejection fraction SVT (supraventricular tachycardia) ICD (implantable cardioverter-defibrillator) in place CAD (coronary artery disease) Social History Alcohol intake: current Alcohol intake frequency: holidays/special occasions only Patient Tobacco Use Status: Never used Tobacco Current occupational status: unemployed Current occupation: left hand dominant Office Procedures Cardiac Device Check Cardiac Device Check Details: Remote heart failure report generated 10/06/2024. Heart failure markers are significantly elevated. Will follow up with the patient clinically [id number] Cardiac Device Interrogation, cardio physiologic monitor Procedure code (CPT) selection complete Assessment & Plan Assessment & Plan (1) ICD (implantable cardioverter-defibrillator) in place: Comment: Medtronic single-chamber for primary prevention Code(s): Z95.810 - Presence of automatic (implantable) cardiac defibrillator Category: Medical Plan: See above Coding Level of Care Code Procedure Only Diagnoses ICD (implantable cardioverter-defibrillator) in place Z95.810 CPT Codes Cardiac Device Check - Cardiac Device 15: [id number] Cardiac Device Interrogation, cardio physiologic monitor ([id number])
== END ==
PROVIDERS: PCP Emergency Medicine; Visit Provider Internal Medicine Cardiovascular Disease
DX: I50.9 Heart failure, unspecified (principal); Z95.810 Presence of automatic (implantable) cardiac defibrillator
CPT/HCPCS: 93297

== ENCOUNTER → 2024-11-20 23:59 | Outpatient (BNV) | payer MEDICAID, SELFPAY ==
--- NOTE | 2024-11-25 15:03 | MHC.OFFVIS ---
Intake Visit Reasons: REmote HF monitoring- Medtronic Allergies No Known Allergies Allergy (Verified 05/07/24 16:26) [facility] Medical History (Updated 08/25/24 @ 12:31 by Kenny Diaz MD) Heart failure with reduced ejection fraction SVT (supraventricular tachycardia) ICD (implantable cardioverter-defibrillator) in place CAD (coronary artery disease) Social History Alcohol intake: current Alcohol intake frequency: holidays/special occasions only Patient Tobacco Use Status: Never used Tobacco Current occupational status: unemployed Current occupation: left hand dominant Office Procedures Cardiac Device Check Cardiac Device Check Details: Remote heart failure report generated 11/20/2024. Heart failure parameters are within normal limits [id number] Cardiac Device Interrogation, cardio physiologic monitor Procedure code (CPT) selection complete Assessment & Plan Assessment & Plan (1) ICD (implantable cardioverter-defibrillator) in place: Comment: Medtronic single-chamber for primary prevention Code(s): Z95.810 - Presence of automatic (implantable) cardiac defibrillator Category: Medical Plan: See above Coding Level of Care Code Procedure Only Diagnoses ICD (implantable cardioverter-defibrillator) in place Z95.810 CPT Codes Cardiac Device Check - Cardiac Device 15: [id number] Cardiac Device Interrogation, cardio physiologic monitor ([id number])
== END ==
PROVIDERS: PCP Emergency Medicine; Visit Provider Internal Medicine Cardiovascular Disease
DX: I50.9 Heart failure, unspecified (principal); Z95.810 Presence of automatic (implantable) cardiac defibrillator
CPT/HCPCS: 93297

== ENCOUNTER → 2024-11-20 23:59 | Outpatient (BNV) | payer MEDICAID, SELFPAY ==
--- NOTE | 2024-11-25 15:06 | MHC.OFFVIS ---
Intake Visit Reasons: Remote ICD check- Medtronic Allergies No Known Allergies Allergy (Verified 05/07/24 16:26) [facility] Medical History (Updated 08/25/24 @ 12:31 by Kenny Diaz MD) Heart failure with reduced ejection fraction SVT (supraventricular tachycardia) ICD (implantable cardioverter-defibrillator) in place CAD (coronary artery disease) Social History Alcohol intake: current Alcohol intake frequency: holidays/special occasions only Patient Tobacco Use Status: Never used Tobacco Current occupational status: unemployed Current occupation: left hand dominant Office Procedures Cardiac Device Check Cardiac Device Check Details: Remote ICD report generated 11/20/2024. ICD function is adequate [id number] Cardiac Interrogation, implant defibrillator w/interim Procedure code (CPT) selection complete Assessment & Plan Assessment & Plan (1) ICD (implantable cardioverter-defibrillator) in place: Comment: Medtronic single-chamber for primary prevention Code(s): Z95.810 - Presence of automatic (implantable) cardiac defibrillator Category: Medical Plan: See above Coding Level of Care Code Procedure Only Diagnoses ICD (implantable cardioverter-defibrillator) in place Z95.810 CPT Codes Cardiac Device Check - Cardiac Device 13: [id number] Cardiac Interrogation, implant defibrillator w/interim ([id number])
== END ==
PROVIDERS: PCP Emergency Medicine; Visit Provider Internal Medicine Cardiovascular Disease
DX: Z45.02 Encounter for adjustment and management of automatic implantable cardiac defibrillator (principal)
CPT/HCPCS: 93295

== ENCOUNTER → 2024-12-23 23:59 | Outpatient (BNV) | payer MEDICAID, SELFPAY ==
--- NOTE | 2024-12-28 16:40 | MHC.OFFVIS ---
Intake Visit Reasons: Remote HF monitoring- Medtronic Allergies No Known Allergies Allergy (Verified 05/07/24 16:26) [facility] Medical History (Updated 08/25/24 @ 12:31 by Kenny Diaz MD) Heart failure with reduced ejection fraction SVT (supraventricular tachycardia) ICD (implantable cardioverter-defibrillator) in place CAD (coronary artery disease) Social History Alcohol intake: current Alcohol intake frequency: holidays/special occasions only Patient Tobacco Use Status: Never used Tobacco Current occupational status: unemployed Current occupation: left hand dominant Office Procedures Cardiac Device Check Cardiac Device Check Details: Remote heart failure report generated 12/24/2024. Heart failure parameters are rising. Will follow up with patient clinically [id number] Cardiac Device Interrogation, cardio physiologic monitor Procedure code (CPT) selection complete Assessment & Plan Assessment & Plan (1) ICD (implantable cardioverter-defibrillator) in place: Comment: Medtronic single-chamber for primary prevention Code(s): Z95.810 - Presence of automatic (implantable) cardiac defibrillator Category: Medical Plan: See above Coding Level of Care Code Procedure Only Diagnoses ICD (implantable cardioverter-defibrillator) in place Z95.810 CPT Codes Cardiac Device Check - Cardiac Device 15: [id number] Cardiac Device Interrogation, cardio physiologic monitor ([id number])
== END ==
PROVIDERS: PCP Emergency Medicine; Visit Provider Internal Medicine Cardiovascular Disease
DX: I50.9 Heart failure, unspecified (principal); Z95.810 Presence of automatic (implantable) cardiac defibrillator
CPT/HCPCS: 93297

== ENCOUNTER → 2025-01-29 23:59 | Outpatient (BNV) | payer MEDICAID, SELFPAY ==
--- NOTE | 2025-01-31 12:38 | A.OFFVIS_ITS ---
Intake Visit Reasons: Remote HF monitoring- Medtronic Allergies No Known Allergies Allergy (Verified 05/07/24 16:26) [facility] Medical History (Updated 08/25/24 @ 12:31 by Kenny Diaz MD) Heart failure with reduced ejection fraction SVT (supraventricular tachycardia) ICD (implantable cardioverter-defibrillator) in place CAD (coronary artery disease) Social History Alcohol intake: current Alcohol intake frequency: holidays/special occasions only Patient Tobacco Use Status: Never used Tobacco Current occupational status: unemployed Current occupation: left hand dominant Office Procedures Cardiac Device Check Cardiac Device Check Details: Remote heart failure report generated 01/29/2025. Heart failure parameters suggest rising OptiVol. Will follow up with the patient [id number] Cardiac Device Interrogation, cardio physiologic monitor Procedure code (CPT) selection complete Assessment & Plan Assessment & Plan (1) ICD (implantable cardioverter-defibrillator) in place: Comment: Medtronic single-chamber for primary prevention Code(s): Z95.810 - Presence of automatic (implantable) cardiac defibrillator Category: Medical Plan: See above Coding Level of Care Code Procedure Only Diagnoses ICD (implantable cardioverter-defibrillator) in place Z95.810 CPT Codes Cardiac Device Check - Cardiac Device 15: [id number] Cardiac Device Interrogation, cardio physiologic monitor ([id number])
== END ==
PROVIDERS: PCP Emergency Medicine; Visit Provider Internal Medicine Cardiovascular Disease
DX: Z45.02 Encounter for adjustment and management of automatic implantable cardiac defibrillator (principal)
CPT/HCPCS: 93297

== ENCOUNTER 2025-02-22 09:50 | Outpatient (AMB) | payer MEDICAID, SELFPAY ==
[2025-02-22 10:09] VITALS: BP 110/60; PULSE 70; BMI 25.9
--- NOTE | 2025-02-22 10:09 | MHC.OFFVIS ---
Vital Signs 02/22/25 10:09 Height 6 ft Weight 190 lb 14.725 oz BMI 25.9 BP 110/60 Blood Pressure Location Lt brachial Position Sitting Pulse 70 Pulse Source Pulse Oximeter Intake Visit Reasons: 6m follow up w medtronic ck Intake Note: 6 m follow up/ Medtronic Allergies No Known Allergies Allergy (Verified 02/22/25 10:12) Medication List - Last Reconciled 02/22/25 by Kenny Diaz MD aspirin 1 tab PO DAILY atorvastatin 40 mg PO DAILY blood pressure test kit-large As directed empagliflozin (Jardiance) 10 mg PO DAILY fluoride (sodium) 1.1% appl PO furosemide 20 mg PO QAM metoprolol succinate ER 100 mg PO QAM sacubitril-valsartan 49-51 mg (Entresto) 1 tab PO BID HPI Comments Details: Chandler comes for follow-up. He said he has been feeling very well. He denies any symptoms of palpitations, lightheadedness, syncope. No ICD discharge. No heart failure symptoms. Denies any orthopnea, PND, leg edema. Takes all his medications.. [facility] Medical History Heart failure with reduced ejection fraction SVT (supraventricular tachycardia) ICD (implantable cardioverter-defibrillator) in place CAD (coronary artery disease) Social History Alcohol intake: current Alcohol intake frequency: holidays/special occasions only Patient Tobacco Use Status: Never used Tobacco Current occupational status: unemployed Current occupation: left hand dominant Review of Systems Const Denies daytime sleepiness, Denies difficulty sleeping, Denies snoring, Denies stops breathing during sleep and Denies weakness Card Denies chest pain, Denies rapid heart rate, Denies irregular heart rhythm, Denies claudication, Denies leg edema, Denies lightheadedness, Denies palpitations, Denies dyspnea, Denies dyspnea on exertion, Denies orthopnea, Denies paroxysmal nocturnal dyspnea and Denies slow heart rate Resp Denies cough, Denies dyspnea, Denies dyspnea on exertion and Denies snoring GI Reports no additional complaints, Denies hematochezia, Denies change in stool character and Denies dyspepsia Musc Denies abnormal gait, Denies muscle weakness and Denies numbness Neuro Denies abnormal gait, Denies numbness and Denies weakness Endo Denies palpitations Physical Exam Vital Signs: Last Vital Signs Pulse 70 02/22/25 10:09 BP 110/60 02/22/25 10:09 BMI result Body Mass Index 25.9 Const General: cooperative, comfortable, no acute distress, well developed, alert and awake Nutritional Appearance: average body habitus and well nourished Orientation/consciousness: patient oriented x3 Limitations: no limitations HEENT Head: Yes normocephalic and Yes atraumatic Neck Neck: Yes trachea midline, Yes supple and Yes no JVD Resp Effort & Inspection: normal respiratory effort Auscultation: clear to auscultation bilaterally Cardio Jugular venous distension: no JVD Palpation: abnormal PMI displaced PMI Rate: regular rate Rhythm: regular rhythm Heart sounds: S1 normal heart sound present, S2 normal heart sound present, no click, no gallops, no murmurs and no rubs GI Auscultation: normal bowel sounds Skin General skin exam: no rashes or lesions noted Neuro General: patient oriented x3 and no focal motor deficits Extrem General: Yes no clubbing, cyanosis or edema Office Procedures Cardiac Device Check Cardiac Device Check Details: Single-chamber Medtronic ICD in place. Programmed in VVI at 40 beats per minute. Ventricular sensing is excellent. Ventricular pacing thresholds excellent and reprogrammed to enhance battery life. Pacing and shock lead impedance is stable. Battery life is excellent. No arrhythmias detected [id number] Cardiac Device Check, single lead implantable defibrillator Procedure code (CPT) selection complete Assessment & Plan Assessment & Plan (1) Heart failure with recovered ejection fraction (HFrecEF): Code(s): I50.20 - Unspecified systolic (congestive) heart failure Category: Medical Plan: Heart failure with recovered ejection fraction. Clinically euvolemic and well compensated. Continue current neurohormonal modulation with metoprolol, Entresto as well as Jardiance. Continue current diuretic dose. Daily weight monitoring avoidance salt loading was discussed. Follow-up echocardiogram 6 months time. If he remains heart failure free will start tapering his diuretic regimen. Continue maintain activity level and this was discussed with him. Advised to call me with any worsening symptoms. (2) CAD (coronary artery disease): Code(s): I25.10 - Atherosclerotic heart disease of [place] coronary artery without angina pectoris Category: Medical Plan: Branch vessel coronary artery disease with no symptoms of angina. Continue low-dose aspirin therapy for life. Continue high-intensity statin therapy. LDL is well optimized. Consider repeating lipid panel. If triglycerides are still elevated consider targeting triglycerides with either Vascepa or fibrates. To target goal triglycerides less than 200 mg/dL. (3) ICD (implantable cardioverter-defibrillator) in place: Comment: Medtronic single-chamber for primary prevention Code(s): Z95.810 - Presence of automatic (implantable) cardiac defibrillator Category: Medical Plan: ICD in place for primary prevention. ICD is working well. Reprogrammed for adequate functioning. Remote monitoring sometimes shows elevated filling pressures. However he has no worsening heart failure symptoms. Continue current diuretic dose. Will continue monitor remotely. Follow up in the clinic in 6 months time, sooner PRN. Thank you for allowing me to partake in his care Orders: Orders Basic Metabolic Panel Today I50.20 - Unspecified systolic (congestive) heart failure CA echo transthoracic complete 6 Months I50.20 - Unspecified systolic (congestive) heart failure Coding Level of Care Code Est Pt Level 4 (55091) Complex EM visit Add On G2211 Diagnoses Heart failure with recovered ejection fraction (HFrecEF) I50.20 CAD (coronary artery disease) I25.10 ICD (implantable cardioverter-defibrillator) in place Z95.810 CPT Codes Cardiac Device Check - Cardiac Device 4: [id number] Cardiac Device Check, single lead implantable defibrillator ([id number])
== END 2025-02-22 10:34 | disposition home or self-care (01) ==
LOC: HO.HCS 09:51
PROVIDERS: PCP Emergency Medicine; Visit Provider Internal Medicine Cardiovascular Disease
DX: I50.20 Unspecified systolic (congestive) heart failure (principal); I25.10 Atherosclerotic heart disease of native coronary artery without angina pectoris; Z95.810 Presence of automatic (implantable) cardiac defibrillator
CPT/HCPCS: 93282; 99214

== ENCOUNTER 2025-02-22 09:50 | Outpatient (REF) | payer MEDICAID, SELFPAY ==
[2025-02-22 13:55] LABS: Alanine Aminotransferase 30 U/L (0-40); Albumin Level 5.1 g/dL (3.5-5.0); Alkaline Phosphatase 53 U/L (39-117); Anion Gap 12 (12-20); Aspartate Amino Transferase 36 U/L (5-37); Blood Urea Nitrogen 18 mg/dL (9-16); Calcium 9.7 mg/dL (8.4-10.2); Carbon Dioxide 24 mmol/L (22-29); Chloride 103 mmol/L (96-108); Cholesterol 185 mg/dL (<200); Estimated Glomerular Filt Rate > 60; HDL Cholesterol 56 mg/dL (>40); Potassium 4.7 mmol/L (3.3-5.1); Sodium 134 mmol/L (135-145); Total Protein 8.3 g/dL (6.5-8.0); Triglycerides 157 mg/dL (<150)
--- OUTSIDE RECORDS SUMMARY | 2025-02-22 20:47 | XMS_ITS | Encounter Summary ---
Author Organization [employer] Address [address] [place] [address] Care Team Providers Care Glove Cuffer Name Role Phone Ingris Ruiz CON[employer]YOR [employer]T OPERATOR Primary Care Provider [phone] [place] DMD Unavailable [phone] Reason for Visit * Reason Comments Med Refill Encounter Details Date Type Department Care Team (Late st Contact Info) Description 01/16/2025 Refill [facility] [address] [place] [address] Ingris Ruiz FNP [address] [place] [address] Social History Tobacco Use Types Packs/Day Years [...] Care Team (Late st Contact Info) Description 04/14/2025 10:30 AM EST Medication Management [facility] [address] [place] [address] Patricia Mendoza, PharmD [address] [place] [address] 04/28/2025 2:15 PM EST Office Visit [facility] [address] [place] [address] Vida Pérez documented as of this encounter Visit Diagnoses Not on filedocumented in this encounter Additional Health Concerns Assessment Noted Time PHQ-9 Depression Total Score: 0 02/12/20 24 1:13 PM EST documented as of this encounter Care Teams Glove Cuffer Relationship Specialty Start Date End Date Ingris Ruiz FNP [address] [place] [address] PCP - General Family Medicine 02/12/24 [place] DMD [address] [place] [address] Dentist 05/26/24 documented as of this encounter
--- OUTSIDE RECORDS SUMMARY | 2025-02-22 20:47 | XMS_ITS | Encounter Summary ---
Author Organization [employer] Address [address] [facility] 7t [place] [address] Care Team Providers Care Heating And Refrigeration Inspector Name Role Phone Blanche Ruizupe COMMUNITY SERVICES MANAGER Primary Care Provider [phone] SawCortes ayala DMD Unavailable [phone] Encounter Details Date Type Department Care Team (Late st Contact Info) Description 02/22/2025 Orders Only GENERIC EXTERNAL DATA DEPARTMENT Provider, Generic External Data Social History Tobacco Use Types Packs/Day Years [...] the past 12 months, has t he [employer], gas, oil or water [employer] threatened to shut off services in your [...] Description 04/14/2025 10:30 AM EST Medication Management [facility] MED[facility] [address] [place] [address] Patricia Mendoza, SarahD [address] [place] [address] 04/28/2025 2:15 PM EST Office Visit [facility] ADULT DENTAL [address] [place] [address] Vida Pérez documented as of this encounter Procedures Procedure Name Priority Date/Time Associated Diagnosis Comments BASIC METABOLIC PANEL Routine 02/22/2025 10:48 AM EST documented in this encounter Results * (ABNORMAL) Basic Metabolic Panel (02/22/2025 10:48 AM EST) Sodium 134(L) 135 - 145 mmol/L [facility] Potassium 4.7 3.3 - 5.1 mmol/L [facility] Chloride 103 96 - 108 mmol/L [facility] Carbon Dioxide 24 22 - 29 mmol/L [facility] Anion Gap 12 12 - 20 [facility] Urea Nitrogen (BUN) 18(H) 9 - 16 mg/dL [facility] Creatinine, Serum 0.89 0.5 - 1.4 mg/dL [facility] Estimated Glomerular Filt Rate >60 [facility] Comment:Chronic Kidney Disea se: Estimated GFR < 60 mL/min/[id number] Kidney Disease: Estimated GFR < 15 mL/min/1.73m2 Glucose 93 60 - 115 mg/dL [facility] Calcium 9.7 8.4 - 10.2 mg/dL [facility] 02/22/2025 10:4 8 AM EST 02/22/2025 10:48 AM EST us Generic External Data Provider LAB BLOOD ORDERAB LES Final Result Performing Organization Address City/State/[facility] Co de Phone Number [facility] [address] [place] [address] [phone] documented in this encounter Visit Diagnoses Not on filedocumented in this encounter Additional Health Concerns Assessment Noted Time PHQ-9 Depression Total Score: 0 02/12/20 24 1:13 PM EST documented as of this encounter Care Teams Heating And Refrigeration Inspector Relationship Specialty Start Date End Date Ingris Ruiz FNP [address] [place] [address] PCP - General Family Medicine 02/12/24 [place] DMD [address] [place] [address] Dentist 05/26/24 documented as of this encounter
--- OUTSIDE RECORDS SUMMARY | 2025-02-22 20:47 | XMS_ITS | Encounter Summary ---
Author Organization [employer] Address [address] [facility] 7[address] [place] [address] Care Team Providers Care Employee Services Manager Name Role Phone Ingris Ruiz SHUTTLECOCK ASSEMBLER Primary Care Provider [phone] [place] DMD Unavailable [phone] Encounter Details Date Type Department Care Team (Late st Contact Info) Description 01/19/2025 Telephone [facility] [address] [place] [address] Ingris Ruiz FNP [address] [place] [address] Social History Tobacco Use Types Packs/Day Years [...] Description 04/14/2025 10:30 AM EST Medication Management [facility] [address] [place] [address] Patricia Mendoza, PharmD [address] [place] [address] 04/28/2025 2:15 PM EST Office Visit [facility] CHC ADULT DENTAL [address] [place] [address] Vida Pérez documented as of this encounter Visit Diagnoses Not on filedocumented in this encounter Additional Health Concerns Assessment Noted Time PHQ-9 Depression Total Score: 0 02/12/20 24 1:13 PM EST documented as of this encounter Care Teams Employee Services Manager Relationship Specialty Start Date End Date Ingris Ruiz FNP [address] [place] [address] PCP - General Family Medicine 02/12/24 [place] DMD [address] [place] [address] Dentist 05/26/24 documented as of this encounter
--- OUTSIDE RECORDS SUMMARY | 2025-02-22 20:47 | XMS_ITS | Clinical Summary ---
Author Organization [employer] Address [address] [facility] 7t [place] [address] Care Team Providers Care Surveying Teacher Name Role Phone Blanche Ruizupe PAN TANK WORKER Primary Care Provider [phone] Saw Cortes DMD Unavailable [phone] Allergies No known active allergies Medications Sodium Fluoride 1.1 % creamIndicatio ns:Dental caries [place] teeth for 2 minutes, morning and night. Spit, do not rinse. Do not eat or drink anything for 30 minutes following use. 112 g 3 03/08/20 24 Active metoprolol succinate XL (Toprol-XL) 100 MG 24 hr tablet Take 50 mg by mouth in the morning. 05/26/19 25 Active Entresto 49-51 MG tablet Take 1 tablet by mouth 2 times daily. 07/14/19 25 Active furosemide (Lasix) 20 MG tablet Take 20 mg by mouth Once per day. Active spironolactone (Aldactone) 25 MG tablet Take 1 tablet (25 mg) by mouth in the morning. 90 tablet 12/22/19 25 Active atorvastatin (Lipitor) 40 MG tablet TAKE 1 TABLET BY MOUTH AT BEDTIME 90 tablet 02/09/20 25 Active Aspirin Low Dose 81 MG chewable tablet CHEW 1 TABLET BY MOUTH EVERY MORNING 90 tablet 02/09/20 25 Active empagliflozin (Jardiance) 10 MG TAKE 1 TABLET BY MOUTH EVERY MORNING 30 tablet 02/09/20 25 Active atorvastatin (Lipitor) 40 MG tablet Take 1 tablet (40 mg) by mouth at bedtime. 90 tablet 1 01/21/20 25 Active empagliflozin (Jardiance) 10 MG Take 1 tablet (10 mg) by mouth in the morning. 30 tablet 5 01/20/20 Active aspirin (Aspirin Low Dose) 81 MG chewable tablet Chew 1 tablet (81 mg) Once per day. 90 tablet 1 01/20/20 25 Active empagliflozin (Jardiance) 10 MG Take 1 tablet (10 mg) by mouth in the morning. 30 tablet 5 01/21/20 25 025 Discontinued(Du plicate order (will not trigger notification to Pharmacy)) aspirin (Aspirin Low Dose) 81 MG chewable tablet Chew 1 tablet (81 mg) Once per day. 90 tablet 1 01/21/20 25 025 Discontinued(Ot her) Active Problems Problem Noted [...] referral to CRS Plan Will continue to loan counselor patient at every visit Dietary counseling 02/13/2024 Assessment & Plan (02/13/2024 12:06 PM EST): Eat 3 meals a day, especially breakfast Eat healthy and focus on healthy food choices daily fruits, vegetables, grains, low fat milk, low carbohydrate and fat Maintain healthy weight. Exercise counseling 02/13/2024 Assessment & Plan (02/13/2024 12:05 PM EST): Make exercise plan with your ammonia operator At risk for dental problems 02/13/2024 Irregular [...] cords. Limited mobility of the fingers Limited window cleaner strength Plan Referral to hand surgery AICD (automatic cardioverter/defibrillator) pres ent 02/12/2024 Assessment & Plan (02/13/2024 11:37 AM EST): Implanted cardio defibrillator device on the left upper quadrant of the chest Plan Training Personnel Supervisor referral Ischemic cardiomyopathy 01/13/2024 Assessment & Plan (02/12/2024 3:14 PM EST): Referral to Training Personnel Supervisor Chronic heart failure 01/13/2024 Overview (02/12/2024): EF 45-50% Last echo 02/2023 in [place] Assessment & Plan (03/17/2024 8:35 AM EST): Irregular heart beat In planted cardio fibrillator Patient did not follow up on ammonia operator appointment Plan Follow up appointment with ammonia operator Dietary counseling History of appendectomy 01/13/2024 History of right inguinal hernia repair 01/13/20 24 Resolved Problems Problem Noted Date Diagnosed Date Resolved Date Vision problem 02/13/2024 06/07/2024 Encounters Date Type Department Care Team Description 02/22/2025 Orders Only GENERIC EXTERNAL DATA DEPARTMENT Provider, Generic External Data 02/07/2025 9:00 AM EST Office Visit [facility] [address] [place] [address] Ingris Ruiz FNP Mixed hyperlipidemia (Primary Dx); Chronic heart failure, unspecified heart failure type (HCC); Dupuytren contracture of both hands; Alcohol use disorder; Screening for colon cancer 02/07/2025 Travel 01/19/2025 Telephone [facility] [address] [place] [address] OkBlanche prescottupe, PAN TANK WORKER 01/18/2025 Refill [facility] [address] [place] [address] Okhipo Ingris, PAN TANK WORKER 01/18/2025 Refill [facility] [address] [place] [address] Okhipo Ingris, PAN TANK WORKER 01/17/2025 Refill [facility] [address] [place] [address] Okhipo Ingris, PAN TANK WORKER 01/16/2025 Refill [facility] [address] [place] [address] Okhipo Ingris, PAN TANK WORKER 01/16/2025 Refill [facility] [address] [place] [address] Okhipo Ingris, PAN TANK WORKER 01/12/2025 Refill [facility] [address] [place] [address] Oktraeo Ingris, PAN TANK WORKER 01/11/2025 Telephone [facility] [address] [place] [address] Okhipo Ingris, PAN TANK WORKER No Show 01/11/2025 Refill [facility] [address] [place] [address] Okhipo Ingris, PAN TANK WORKER 01/10/2025 Telephone [facility] [address] [place] [address] Okhipo Ingris, PAN TANK WORKER CHARTPREP 12/20/2024 Refill [facility] [address] [place] [address] Okhipo Ingris, PAN TANK WORKER 11/29/2024 10:30 AM EDT Office Visit [facility] ADULT DENTAL [address] [place] [address] Cortes Spring, MELANY Dental caries (Primary Dx); Supraeruption of teeth; Periodontal disease from Last 3 Months Immunizations Immunization Administration Dates Next Due Influenza, seasonal, injectable, [...] Sign Reading Time Taken Comments Blood Pressure 120/82 02/07/2025 9:08 AM EST Pulse 69 02/07/2025 9:08 AM EST Temperature 36.9 C (98.5 F) 02/07/2025 9:08 AM EST Respiratory Rate 17 02/07/2025 9:08 AM EST Oxygen Saturation 98% 02/07/2025 9:08 AM EST Inhaled Oxygen Concentration - - Weight 87.1 kg (192 lb) 02/07/2025 9:08 AM EST Height 182.9 cm (6') 02/07/2025 9:08 AM EST Body Mass Index 26.04 02/07/2025 9:08 AM EST Plan of Treatment Upcoming Encounters Date Type Department Care Team (Late st Contact Info) Description 04/14/2025 10:30 AM EST Medication Management [facility] [address] [place] [address] Patricia Mendoza, PharmD [address] [place] [address] 04/28/2025 2:15 PM EST Office Visit [facility] CH[facility] ADULT DENTAL [address] [place] [address] Vida Pérez Health Maintenance Due Date Last Done Comments CT Colonography 1974 Colonoscopy 1974 Colorectal Cancer Screening 1974 FIT DNA/Cologuard 1974 FIT 1974 FOBT 1974 HIV Screening 1974 Sigmoidoscopy 1974 Alcohol/Substance Use Screening 1986 Family Planning (PISQ) 1989 Hepatitis B Vaccines (1 of 3 - 19+ 3-dose series) 1993 RSV Patients and Patients Aged 60 years or older (1 - Risk 50-74 years 1-dose series) 2024 COVID-19 Vaccine (2 - 2024-2 6 season) 2024 04/21/2024 Influenza Vaccine (#1) 2024 02/12/2024 SDOH Screening 02/04/2025 02/05/2024 Depression Screening 02/11/2025 02/12/2024, 02/12/2024 Dental X-Ray: Bitewings 03/09/2025 03/08/2024 Disability Screening 04/11/2025 04/11/2024 Dental Prophylaxis 04/21/2025 10/18/2024, 03/08/2024 Dental Oral Exam 06/02/2025 11/29/2024, 03/08/2024 Tobacco Screening 11/29/2025 11/29/2024 Dental X-Ray: Full Mouth 03/09/2027 03/08/2024 Lipid Panel 02/22/2030 02/22/2025, 01/15/2024 DTaP/Tdap/Td Vaccines (2 - T d or Tdap) 04/21/2034 04/21/2024 Hepatitis C Screening Completed 01/15/2024 Pneumococcal Vaccine: 50+ Years Completed 02/12/2024 Zoster Vaccines Completed 06/28/2024, 04/26/2024 HIB Vaccines [...] patient's age to complete this topic Meningococcal B Vaccine Aged Out No l onger eligible based on patient's age to complete [...] METABOLIC PANEL Routine 02/22/2025 10:48 AM EST LIPID PANEL, STANDARD Routine 02/22/2025 10:48 AM EST Mixed hyperlipidemia HEPATIC FUNCTION PANEL Routine 02/22/2025 10:48 AM EST Mixed hyperlipidemia CASE PRESENTATION, DETAILED AND EXTENSIVE TREATMENT PLANNING Routine 11/29/2024 10:30 AM EDT Dental caries Periodontal disease PERIODIC ORAL EVALUATION - ESTABLISHED PATIENT Routine 11/29/2024 10:30 AM EDT Dental caries Periodontal disease 14 MO RESIN-BASED COMPOSITE - 2 SURF, POSTERIOR Routine 11/29/2024 10:30 AM EDT Dental caries Periodontal disease 9 ML RESIN-BASED COMPOSITE - 2 SURF, ANTERIOR Routine 11/29/2024 10:30 AM EDT Dental caries Periodontal disease PROPHYLAXIS - ADULT Routine 10/18/2024 3 :00 PM EDT INTRAORAL - COMPLETE SERIES OF RADIOGRAPHIC IMAGES Routine 03/08/2024 2:00 PM EST Dental caries Supraeruption of teeth Periodontal disease HEPATITIS C AB W/REFL TO HCV RNA, QN, PCR Routine 01/15/2024 8:52 AM EDT Chronic congestive heart failure, unspecified heart failure type (CMS/HCC) from Last 3 Months or Most Recently Relevant to Health Maintenance Results * (ABNORMAL) Hepatic Function Panel (02/22/2025 10:48 AM EST) Bilirubin, Total 0.6 0.0 - 1.0 mg/dL [facility] Bilirubin, Direct 0.2 0.0 - 0.5 mg/dL [facility] Aspartate Amino Transferase 36 5 - 37 U/L [facility] Alanine Aminotransferase 30 0 - 40 U/L [facility] Total Protein 8.3(H) 6.5 - 8.0 g/dL [facility] Albumin Level 5.1(H) 3.5 - 5.0 g/dL [facility] Alkaline Phosphatase 53 39 - 117 U/L [facility] Blood Venous blood specimen / Unknown 02/22/2025 10:48 AM EST 02/22/2025 10:48 AM EST us Ingris Ruiz PAN TANK WORKER LAB BLOOD ORDERABLES Final Res ult Performing Organization Address [facility] Co de Phone Number [facility] [address] [place] [address] [phone] * (ABNORMAL) Lipid Panel, Standard (02/22/2025 10:48 AM EST) Triglycerides 157(H) <150 mg/dL [facility] Comment:Desirable Triglyceri de: less than 150 mg/dLBorderline High Triglyceride 150-199 mg/dLHigh Triglyceride: 200-499 mg/dLVery High Triglyceride: greater than or equal to 5OO mg/dL Cholesterol 185 <200 mg/dL [facility] Comment:Desirable Cholestero l: less than 200 mg/dLBorderline High Cholesterol: 200-239 mg/dLHigh Cholesterol: greater than 239 mg/dL LDL Cholesterol Calculated 98 <100 mg/dL [facility] Comment:Desirable LDL: less than 100 mg/dLNear Optimal/Above Optimal LDL: 110- 129 mg/dLBorderline High LDL: 130-159 mg/dLHigh LDL: 160-189 mg/dLVery High LDL: greater than or equal to 190 mg/dL HDL Cholesterol 56 >40 mg/dL [facility] Comment:Desirable HDL: great er than 40 mg/dL Note: This HDL assay may give artificially low results in patients with liver disease. Blood Venous blood specimen / Unknown 02/22/2025 10:48 AM EST 02/22/2025 10:48 AM EST Ingris Ruiz [facility] BLOOD ORDERABLES Final Res ult Performing Organization Address [facility] Co de Phone Number [facility] [address] [place] [address] [phone] * (ABNORMAL) Basic Metabolic Panel (02/22/2025 10:48 AM EST) Sodium 134(L) 135 - 145 mmol/L [facility] Potassium 4.7 3.3 - 5.1 mmol/L [facility] Chloride 103 96 - 108 mmol/L [facility] Carbon Dioxide 24 22 - 29 mmol/L [facility] Anion Gap 12 12 - 20 [facility] Urea Nitrogen (BUN) 18(H) 9 - 16 mg/dL [facility] Creatinine, Serum 0.89 0.5 - 1.4 mg/dL [facility] Estimated Glomerular Filt Rate >60 [facility] Comment:Chronic Kidney Disea se: Estimated GFR < 60 mL/min/1.12m4Wgkrzv Kidney Disease: Estimated GFR < 15 mL/min/1.73m2 Glucose 93 60 - 115 mg/dL [facility] Calcium 9.7 8.4 - 10.2 mg/dL [facility] 02/22/2025 10:4 8 AM EST 02/22/2025 10:48 AM EST us Generic External Data Provider LAB BLOOD ORDERAB LES Final Result Performing Organization Address [facility]/ZIP Co de Phone Number [facility] [address] [place] [address] [phone] * Hepatitis C Antibody with Reflex to HCV, RNA, Quantitative, Real-Time PCR (01/15/2024 8:52 AM EDT) Hepatitis C Antibody Nonreactive Nonreactive [facility] Comment:Antibodies to HCV no t detected; does not exclude early acuteHCV infection. Blood Venous blood specimen / Unknown 01/15/2024 8:52 AM EDT 01/15/2024 11:17 AM EDT Dennis Ramirez MD LAB BLOOD ORDERABLES Final Resul t Performing Organization Address City/[facility]/ZIP Co de Phone Number [facility] [address] [place] [address] [phone] from Last 3 Months or Most Recently Relevant to Health Maintenance [id number] MEDICAID STAND ADULT Care Teams Surveying Teacher Relationship Specialty Start Date End Date Ingris Ruiz FNP [address] [place] [phone] PCP - General Family Medicine 02/12/24 [place] DMD [address] [place] [address] Dentist 05/26/24
--- OUTSIDE RECORDS SUMMARY | 2025-02-22 20:47 | XMS_ITS | Encounter Summary ---
Author Organization [email or web address] Address [address] [facility] 7t [place] [address] Care Team Providers Care Motor Generator Set Operator Name Role Phone Ingris Ruiz MANAGER INTELLIGENCE Primary Care Provider [phone] Cort[place] DMD Unavailable [phone] Reason for Visit * Reason Comments Med Refill Encounter Details Date Type Department Care Team (Late st Contact Info) Description 01/11/2025 Refill [facility] [address] [place] [address] Ingris Ruiz FNP [address] [place] [address] Social History Tobacco Use Types Packs/Day Years [...] PM EDT documented as of this encounter Miscellaneous Notes * Telephone Encounter - BRANDON Zuniga - 02/08/2025 1:07 PM EST Approving, but needs appt for additional refills. * Telephone Encounter - BRANDON Zuniga - 02/08/2025 1:07 PM EST Approving, but needs appt for additional refills. documented in this encounter Plan of Treatment Upcoming Encounters Date Type Department Care Team (Late st Contact Info) Description 04/14/2025 10:30 AM EST Medication Management [facility] [address] [place] [address] Patricia Mendoza, SarahD [address] [place] [address] 04/28/2025 2:15 PM EST Office Visit [facility] ADULT D[facility]AL [address] [place] [address] Vida Pérez documented as of this encounter Visit Diagnoses Not on filedocumented in this encounter Additional Health Concerns Assessment Noted Time PHQ-9 Depression Total Score: 0 02/12/20 1:13 PM EST documented as of this encounter Care Teams Motor Generator Set Operator Relationship Specialty Start Date End Date Ingris Ruiz FNP [address] [place] [address] PCP - General Family Medicine 02/12/24 [place] DMD [address] [place] [address] Dentist 05/26/24 documented as of this encounter
--- OUTSIDE RECORDS SUMMARY | 2025-02-22 20:47 | XMS_ITS | Encounter Summary ---
Author Organization [employer] Address [address] [facility] 7t [place] [address] Care Team Providers Care Ramp Boss Name Role Phone Ingris Ruiz VICE PRESIDENT OF PRODUCT MARKETING Primary Care Provider [phone] [place] DMD Unavailable [phone] Reason for Visit * Reason Comments Med Refill Encounter Details Date Type Department Care Team (Late st Contact Info) Description 01/18/2025 Refill [facility] [address] [place] [address] Ingris Ruiz FNP [address] [place] [address] Social History Tobacco Use Types Packs/Day Years [...] Description 04/14/2025 10:30 AM EST Medication Management [facility] [address] [place] [address] Patricia Mendoza, PharmD [address] [place] [address] 04/28/2025 2:15 PM EST Office Visit [facility] ADULT D[facility] [address] [place] [address] Vida Pérez documented as of this encounter Visit Diagnoses Not on filedocumented in this encounter Additional Health Concerns Assessment Noted Time PHQ-9 Depression Total Score: 0 02/12/20 24 1:13 PM EST documented as of this encounter Care Teams Ramp Boss Relationship Specialty Start Date End Date Ingris Ruiz FNP [address] [place] [address] PCP - General Family Medicine 02/12/24 Cortes [place] DMD [address] [place] [address] Dentist 05/26/24 documented as of this encounter
--- OUTSIDE RECORDS SUMMARY | 2025-02-22 20:47 | XMS_ITS | Encounter Summary ---
Author Organization [employer] Address [address] [facility] [place] [address] Care Team Providers Care Tie Bucker Name Role Phone Blanche Ruizupe DIETITIAN HELPER Primary Care Provider [phone] [place] DMD Unavailable [phone] Encounter Details Date Type Department Care Team (Late st Contact Info) Description 08/26/2024 Orders Only [facility] [address] [place], [place] [phone] Dennis Ramirez MD [address] [place], [place] [phone] Social History Tobacco Use Types Packs/Day Years [...] Description 04/14/2025 10:30 AM EST Medication Management [facility] [address] [place] [address] Patricia Mendoza, PharmD [address] [place] [address] 04/28/2025 2:15 PM EST Office Visit [facility]ULT [facility] [address] [place] [address] Vida Pérez documented as of this encounter Visit Diagnoses Not on filedocumented in this encounter Additional Health Concerns Assessment Noted Time PHQ-9 Depression Total Score: 0 02/12/20 24 1:13 PM EST documented as of this encounter Care Teams Tie Bucker Relationship Specialty Start Date End Date Ingris Ruiz FNP 230 [place] [address] PCP - General Family Medicine 02/12/24 [place] DMD [address] [place] [address] Dentist 05/26/24 documented as of this encounter
== END 2025-02-22 09:51 | disposition home or self-care (01) ==
LOC: HO.LAB 09:50
PROVIDERS: Nurse Practitioner Family; PCP Emergency Medicine; Visit Provider Internal Medicine Cardiovascular Disease
DX: I25.10 Atherosclerotic heart disease of native coronary artery without angina pectoris (principal); I50.20 Unspecified systolic (congestive) heart failure; E78.2 Mixed hyperlipidemia; Z95.810 Presence of automatic (implantable) cardiac defibrillator
CPT/HCPCS: 36415; 80048; 80061; 80076; 93282; 99212

== ENCOUNTER → 2025-03-22 14:46 | Outpatient (BNV) | payer MEDICAID, SELFPAY | PROVIDERS: PCP Emergency Medicine; Visit Provider Internal Medicine Cardiovascular Disease | DX: I50.20 Unspecified systolic (congestive) heart failure (principal); I25.10 Atherosclerotic heart disease of native coronary artery without angina pectoris; Z95.810 Presence of automatic (implantable) cardiac defibrillator | CPT/HCPCS: 93297 ==